=== PATIENT | male | born 1955 | race Caucasian/White ===

== ENCOUNTER 2019-11-02 10:09 | Emergency (ER) | payer OTHER, SELFPAY ==
[2019-11-02 10:18] VITALS: BP 178/73; PULSE 54; RESP 18; TEMP 36.7; O2SAT 98
--- NOTE | 2019-11-02 10:20 | ED.GENADULT ---
HPI - General Adult General Chief complaint: Unspecified Stated complaint: severe sinus pain Time Seen by Provider: 11/02/19 10:18 Source: patient Mode of arrival: ambulatory Limitations: no limitations History of Present Illness HPI narrative: A 64 y/o male presents to the ED with c/o neck pain. Pt states that on 10/30/19 he saw his PCP for congestion and sinus pressure. At that appointment he was prescribed low dose Amoxicillin. He then began to experience neck pain behind his bilateral ears and went to urgent care yesterday. At the urgent care visit they increased his dose of Amoxicillin and advised him to come to the ED if his symptoms did not resolve. He notes that the neck pain is aggravated with movement. Pt denies any fall or injury that could cause the pain. He denies fever, numbness, rash, and otalgia. Pt adds that the Amoxicillin resolved the congestion and sinus pressure. He took Ibuprofen yesterday with no relief. MD complaint: Neck pain Onset (ago): day(s) (1) Location: neck Pain Consistency: constant Relieving factors: none Exacerbating factors: movement Associated symptoms: other (Resolved congestion, resolved sinus pressure) Related Data Home Medications Medication Instructions Recorded Confirmed albuterol sulfate 90 mcg/actuation 1 inhalation INHALATION Q4H 08/15/19 10/15/19 aerosol inhaler levothyroxine 200 mcg tablet 200 mcg PO DAILY 08/15/19 10/15/19 losartan 100 mg tablet 100 mg PO DAILY 08/15/19 10/15/19 niacin 500 mg capsule,extended 500 mg PO QAM 08/15/19 10/15/19 release sildenafil 100 mg tablet 100 mg PO DAILY PRN 08/15/19 10/15/19 simvastatin 20 mg tablet 20 mg PO DAILY 08/15/19 10/15/19 testosterone cypionate 200 mg/mL 200 mg IM MONTHLY 08/15/19 10/15/19 intramuscular oil verapamil 240 mg tablet,extended 240 mg PO DAILY 08/15/19 10/15/19 release Allergies Allergy/AdvReac Type Severity Reaction Status Date / Time hydrochlorothiazide Allergy Unknown Unknown Verified 11/02/19 10:49 valsartan Allergy Unknown Unknown Verified 11/02/19 10:49 2 UNKNOWN B/P MEDICATIONS Allergy Unknown RASH Uncoded 02/05/17 07:27 Review of Systems Review of Systems: Narrative: CONSTITUTIONAL: Denies fever, chills, or sweats. EYES: Denies visual changes, redness, or discharge. ENT: Denies rhinorrhea, sore throat, or otalgia. Resolved congestion and resolved sinus pressure. CARDIOVASCULAR: Denies chest pain, palpitations, or edema. RESPIRATORY: Denies cough or dyspnea. GASTROINTESTINAL: Denies abdominal pain, nausea, vomiting, or diarrhea. GENITOURINARY: Denies dysuria or hematuria. SKIN: Denies rash or itching. MUSCULOSKELETAL: Denies back pain, joint pain, or myalgia. Reports neck pain. NEUROLOGIC: Denies headache, numbness, or weakness. All systems reviewed & are unremarkable except as noted in HPI and below PMFSH Past Medical History Medical History (Updated 11/02/19 @ 10:54 by Betsey Toney MD) Arm fracture, right Benign essential hypertension COPD (chronic obstructive pulmonary disease) Cough Hemochromatosis Hemorrhoid Hyperlipidemia Hypothyroid Pneumonia Polyp, colonic Sleep apnea Ulcer UTI (urinary tract infection) Surgical History Surgical History (Updated 11/02/19 @ 10:30 by Cindy Peck) History of carpal tunnel release Family History Family History Sibling Family history of suicide Patient's brother is in good health Father Family history of lung cancer Other Family history of allergic disorder Family history of malignant neoplasm Hypertension Social History Social History Smoking packs per day: 1.5 Smoking cigarettes per day: 30.0 Years smoked: 15 Smoking pack-years: 22.50 Smoking status: Former smoker Smoking end date: 09/03/89 Alcohol intake: never Exam Narrative: Exam Narrative: GENERAL: Well-appearing, well-nourished, and in no acute distress.
[2019-11-02] MEDS: ACETAMINOPHEN 500 MG TABLET 1000 MG PO (10:50)
[2019-11-02] MEDS: DIAZEPAM 5 MG TABLET PO (10:51)
[2019-11-02] MEDS: KETOROLAC (*BKC) 60 MG/2 ML VIAL 30 MG IM (10:53)
[2019-11-02 11:24] VITALS: TEMP 36.7
== END 2019-11-02 11:26 | disposition home or self-care (01) ==
PROVIDERS: Emergency Provider Emergency Medicine; PCP Physician Assistant
DX: S16.1XXA Strain of muscle, fascia and tendon at neck level, initial encounter (principal); I10 Essential (primary) hypertension; J44.9 Chronic obstructive pulmonary disease, unspecified; E78.5 Hyperlipidemia, unspecified; E03.9 Hypothyroidism, unspecified; G47.30 Sleep apnea, unspecified; Z87.440 Personal history of urinary (tract) infections; F17.210 Nicotine dependence, cigarettes, uncomplicated; X58.XXXA Exposure to other specified factors, initial encounter
CPT/HCPCS: 87804; 96372; 99283; A9270; J1100; J1885

== ENCOUNTER 2020-06-17 12:16 | Outpatient (CLI) | payer OTHER, SELFPAY ==
--- NOTE | ~2020-06-17 | XR_ITS ---
EXAMINATION:XR_[id number]_CR DATE: 06/17/2020 12:49 INDICATION: Neck pain TECHNIQUE: AP, lateral, and odontoid views of the cervical spine are provided. COMPARISON: None FINDINGS: There are 2 mm of anterolisthesis of C4 on C5 and 2 mm of retrolisthesis of C5 on C6. The o dontoid is intact. No fracture is identified. The vertebral body heights are normal. There is severe loss of intervertebral disc space height at C4-5 through C6-7. Prevertebral soft tissues are normal. Degenerative osteophytes project from the anterior endplates of multiple vertebral bodies. There is s evere facet and uncovertebral joint osteoarthritis. IMPRESSION: 1. Severe cervical spondylosis without acute findings. Reviewed, dictated and finalized at location A.
== END 2020-06-17 12:17 | disposition home or self-care (01) ==
LOC: ANHIMG 12:24
PROVIDERS: PCP Physician Assistant; Visit Provider Physician Assistant
DX: M54.2 Cervicalgia (principal); M47.812 Spondylosis without myelopathy or radiculopathy, cervical region
CPT/HCPCS: 72040

== ENCOUNTER → 2021-01-07 00:35 | Outpatient (CLI) | payer OTHER, SELFPAY ==
[2021-01-07 18:42] LABS: SARS-CoV-2 RNA PCR Negative
== END ==
PROVIDERS: PCP Physician Assistant; Visit Provider Internal Medicine Gastroenterology
DX: Z01.812 Encounter for preprocedural laboratory examination (principal); Z20.822 Contact with and (suspected) exposure to COVID-19
CPT/HCPCS: C9803; U0003; U0005

== ENCOUNTER 2021-01-10 01:50 | Day surgery (SDC) | payer OTHER, SELFPAY ==
[2020-12-28 15:48] VITALS: BMI 35.4
--- NOTE | 2021-01-10 08:29 | WPDGICN ---
Assessment and Plan Assessment and plan (1) Encounter for screening colonoscopy: Code(s): Z12.11 - Encounter for screening for malignant neoplasm of colon Status: Acute Assessment and Plan: Patient presents for screening colonoscopy. He appears to have no obvious risk factors. Further recommendations will be given after endoscopy. GI Consult Note Consult date/time: 01/10/21 08:29 HPI: Henry Murphy is a 65 year old male Seen in the evaluation at the request of ROBERT Khan. Patient presents for screening colonoscopy. He states that his current weight appetite bowel movements are normal. Patient's last colonoscopy was 13 years ago. Patient currently denies any abdominal pain. He has had no bleeding. His weight remains stable. He presents today for screening exam. Review of Systems Review of Systems: All systems reviewed & are unremarkable except as noted in HPI and below PMFSH Past Medical History Medical History (Updated 01/10/21 @ 08:31 by Clifton Sanchez MD) Arm fracture, right Benign essential hypertension COPD (chronic obstructive pulmonary disease) Cough Hemochromatosis Hemorrhoid Hyperlipidemia Hypothyroid Pneumonia Polyp, colonic Sleep apnea Ulcer UTI (urinary tract infection) Surgical History Surgical History (Updated 11/02/19 @ 10:30 by Cindy Peck) History of carpal tunnel release Family History Family History Sibling Family history of suicide Patient's brother is in good health Father Family history of lung cancer Other Family history of allergic disorder Family history of malignant neoplasm Hypertension Social History Social History Smoking packs per day: 1.5 Smoking cigarettes per day: 30.0 Years smoked: 22.5 Smoking pack-years: 33.75 Smoking status: Former smoker Tobacco type: cigarettes Smoking end date: 09/03/89 Alcohol intake: current Drinks per week: 3 Substance use: never Substance use type: does not use Living arrangements: with family Gender identity (if verbalized by the patient): Male Spiritual care concerns: No Meds Home Medications and Allergies Home Medications Medication Instructions Recorded Confirmed Type albuterol sulfate 90 mcg/actuation 1 inhalation INHALATION Q4H 08/15/19 12/28/20 History aerosol inhaler levothyroxine 200 mcg tablet 200 mcg PO DAILY 08/15/19 12/28/20 History losartan 100 mg tablet 100 mg PO DAILY 08/15/19 12/28/20 History niacin 500 mg capsule,extended 500 mg PO QAM 08/15/19 12/28/20 History release sildenafil 100 mg tablet 100 mg PO DAILY PRN 08/15/19 12/28/20 History simvastatin 20 mg tablet 20 mg PO DAILY 08/15/19 12/28/20 History testosterone cypionate 200 mg/mL 200 mg IM MONTHLY 08/15/19 12/28/20 History intramuscular oil verapamil 240 mg tablet,extended 240 mg PO DAILY 08/15/19 12/28/20 History release fluticasone furoate 100 1 inhalation INHALATION DAILY #60 09/10/19 12/28/20 Rx mcg-vilanterol 25 mcg/dose each inhalation powder Allergies Allergy/AdvReac Type Severity Reaction Status Date / Time hydrochlorothiazide Allergy Unknown Unknown Verified 01/10/21 08:20 valsartan Allergy Unknown Unknown Verified 01/10/21 08:20 2 UNKNOWN B/P MEDICATIONS Allergy Unknown RASH Uncoded 01/10/21 08:20 Exam Narrative: Exam Narrative: Physical exam reveals patient be alert. Vital signs stable. HEENT exam is unremarkable. Lungs are clear to auscultation and percussion. Heart is without murmur or extra sounds. Abdominal exam bowel sounds are present soft nontender with no organomegaly. Digital external rectal exam is normal.
[2021-01-10] MEDS: LACTATED RINGERS 1,000 ML 150 ML IV CONT (08:39)
--- NOTE | 2021-01-10 09:00 | WPDANESEPPF ---
Anes - Initial Pre Proc Eval Procedure: Operation Date: 01/10/21 09:45 Proposed Procedures p Screening Colonoscopy - Clifton Sanchez MD Date/Time: 01/10/21 09:00 Surgeon: Clifton Sanchez MD Pre Op Diagnosis: neoplasm screening Patient Data Age: 65 Gender: M Height: 5 ft 9 in Weight: 109 kg Allergies Allergy/AdvReac Type Severity Reaction Status Date / Time hydrochlorothiazide Allergy Unknown Unknown Verified 01/10/21 08:20 valsartan Allergy Unknown Unknown Verified 01/10/21 08:20 2 UNKNOWN B/P MEDICATIONS Allergy Unknown RASH Uncoded 01/10/21 08:20 Home Medications Medication Instructions Recorded Confirmed Type albuterol sulfate 90 mcg/actuation 1 inhalation INHALATION Q4H 08/15/19 12/28/20 History aerosol inhaler levothyroxine 200 mcg tablet 200 mcg PO DAILY 08/15/19 12/28/20 History losartan 100 mg tablet 100 mg PO DAILY 08/15/19 12/28/20 History niacin 500 mg capsule,extended 500 mg PO QAM 08/15/19 12/28/20 History release sildenafil 100 mg tablet 100 mg PO DAILY PRN 08/15/19 12/28/20 History simvastatin 20 mg tablet 20 mg PO DAILY 08/15/19 12/28/20 History testosterone cypionate 200 mg/mL 200 mg IM MONTHLY 08/15/19 12/28/20 History intramuscular oil verapamil 240 mg tablet,extended 240 mg PO DAILY 08/15/19 12/28/20 History release fluticasone furoate 100 1 inhalation INHALATION DAILY #60 09/10/19 12/28/20 Rx mcg-vilanterol 25 mcg/dose each inhalation powder Patient hx anesthesia problems: none Family hx anesthesia problems: none PMFSH Past Medical History Medical History (Updated 01/10/21 @ 08:31 by Clifton Sanchez MD) Arm fracture, right Benign essential hypertension COPD (chronic obstructive pulmonary disease) Cough Hemochromatosis Hemorrhoid Hyperlipidemia Hypothyroid Pneumonia Polyp, colonic Sleep apnea Ulcer UTI (urinary tract infection) Surgical History Surgical History (Updated 11/02/19 @ 10:30 by Cindy Peck) History of carpal tunnel release Family History Family History Sibling Family history of suicide Patient's brother is in good health Father Family history of lung cancer Other Family history of allergic disorder Family history of malignant neoplasm Hypertension Social History Social History Smoking packs per day: 1.5 Smoking cigarettes per day: 30.0 Years smoked: 22.5 Smoking pack-years: 33.75 Smoking status: Former smoker Tobacco type: cigarettes Smoking end date: 09/03/89 Alcohol intake: current Drinks per week: 3 Substance use: never Substance use type: does not use Living arrangements: with family Gender identity (if verbalized by the patient): Male Spiritual care concerns: No Anes - Eval Final PreProcedure Day of Procedure 01/10/21 09:00 Patient weight: obese Heart: regular rate and rhythm Lungs: clear to auscultation Airway: Mallampati scale class III Neurological: alert and oriented Last oral intake: >/= 8 hours ASA classification: III Emergent: no Anesthetic plan: proceed Anesthesia type and monitoring: general GIVS and standard monitoring Informed Consent: The patient's anesthetic plan and its attendant risks and benefits were discussed with the patient/family/POA. Questions were solicited and answers provided to the satisfaction of the patient/family/POA.
[2021-01-10 09:24] VITALS: BP 141/73; PULSE 54; RESP 20; O2SAT 96
[2021-01-10 09:30] VITALS: BP 140/70; PULSE 52; RESP 17; O2SAT 96
[2021-01-10 09:40] VITALS: BP 151/75; PULSE 55; RESP 14; O2SAT 98
[2021-01-10 09:46] VITALS: BP 156/77; PULSE 57; RESP 19; O2SAT 98
== END 2021-01-10 10:08 | disposition home or self-care (01) ==
PROVIDERS: PCP Physician Assistant; Visit Provider Internal Medicine Gastroenterology
PROC: 0DJD8ZZ Inspection of Lower Intestinal Tract, Via Natural or Artificial Opening Endoscopic (ICD-10-PCS; CPT 45378; principal; 2021-01-10 09:45)
DX: Z12.11 Encounter for screening for malignant neoplasm of colon (principal); K64.8 Other hemorrhoids; K57.30 Diverticulosis of large intestine without perforation or abscess without bleeding; E03.9 Hypothyroidism, unspecified; Z87.891 Personal history of nicotine dependence; J44.9 Chronic obstructive pulmonary disease, unspecified; G47.30 Sleep apnea, unspecified; E66.9 Obesity, unspecified; Z68.35 Body mass index [BMI] 35.0-35.9, adult; I10 Essential (primary) hypertension
CPT/HCPCS: 45378; C9803; J2704; J7120; U0003; U0005

== ENCOUNTER 2022-10-06 15:26 | Outpatient (CLI) | payer OTHER, SELFPAY ==
--- NOTE | ~2022-10-06 | XR_ITS ---
EXAMINATION: XR chest 2V DATE: 10/06/2022 15:45 INDICATION: Cough and hypertension TECHNIQUE: PA and lateral views of the chest are obtained. COMPARISON: 07/30/2016 FINDINGS: The lungs are free of acute opacities. There is chronic scarring in the right middle lobe. No pleural effusion or pneumothorax. The cardiomediastinal silhouette is normal. There is moderate th oracic spondylosis. IMPRESSION: 1. No acute cardiopulmonary abnormality. Reviewed, dictated and finalized at location B. [facility]
== END 2022-10-06 15:27 | disposition home or self-care (01) ==
PROVIDERS: PCP Physician Assistant; Visit Provider Physician Assistant
DX: R05.9 Cough, unspecified (principal)
CPT/HCPCS: 71046

== ENCOUNTER 2024-03-10 15:00 | Outpatient (CLI) | payer MEDICARE, SELFPAY ==
--- NOTE | ~2024-03-10 | CT_ITS ---
EXAMINATION:CT lung screening DATE: 03/10/2024 15:36 INDICATION: Personal history of nicotine dependence. 25 pack year history. TECHNIQUE: Computed tomography (CT) of the chest was performed without intravenous contrast. Automate d exposure control and iterative reconstruction technique were employed. The dose-length product (DLP ) was 337.35 mGy-cm. COMPARISON: Chest CT 11/26/2017 FINDINGS: There is mild emphysema. There is chronic collapse of right middle lobe. There is mild atel ectasis in the lower lobes. Calcified right lung nodules and calcified right hilar lymph nodes are co nsistent with old granulomatous disease. No pleural effusion. Cardiomegaly is noted. There are monahan ry artery calcifications. No pericardial effusion. The central pulmonary is enlarged, consistent with pulmonary arterial hypertension. There is mild bilateral gynecomastia. There is moderate thoracic sp ondylosis. IMPRESSION: 1. Lung-RADS category 2: Benign appearance or behavior. Continue annual screening with noncontrast lo w-dose chest CT in 12 months. Reviewed, dictated and finalized at location E. IMPRESSION: 1. Lung-RADS category 2: Benign appearance or behavior. Continue annual screeni ng with noncontrast low-dose chest CT in 12 months.
== END 2024-03-10 15:01 | disposition home or self-care (01) ==
PROVIDERS: PCP Physician Assistant; Visit Provider Physician Assistant
DX: Z12.2 Encounter for screening for malignant neoplasm of respiratory organs (principal); Z87.891 Personal history of nicotine dependence
CPT/HCPCS: 71271

== ENCOUNTER 2024-04-28 08:23 | Outpatient (CLI) | payer MEDICARE, SELFPAY ==
--- NOTE | 2024-04-28 | EST_ITS ---
Patient Info Name: Henry Murphy Age: 69 years : 1955 Gender: Male Ht: 68 in Wt: 240 lbs BSA: 2.33 m2 HR: 46 bpm BP: 147 / 73 mmHg Exam Date: 04/28/2024 9:35 AM Exam Location: [facility] Patient Status: Outpatient Admit Date: 04/28/2024 Staff Ordering Physician: ErinAngie PA-C Attending Provider: ErinAngie PA-C Exercise Technologist: Tana Evans RDCS Nurse: Dawn Harmon APN Exam Type: CA stress pablo w NM Summary 1. Sinus rhythm with first-degree AV block and minor T-wave abnormality. 2. No ST or T-wave abnormalities following Lexiscan injection. 3. Occasional PVC. 4. Clinically and electrocardiographically uneventful Lexiscan stress test. 5. Myocardial perfusion imaging exam to be dictated by Radiology. Protocol: Lexiscan Stress ECG Details Stage: REST Duration (min): 1 min : 9 sec HR (bpm): 46 SBP (mmHg): 147 DBP (mmHg): 73 Stage: REST Duration (min): 8 min : 14 sec HR (bpm): 45 SBP (mmHg): 147 DBP (mmHg): 73 Stage: STAGE 1 Duration (min): 0 min : 59 sec HR (bpm): 52 SBP (mmHg): 157 DBP (mmHg): 69 Stage: RECOVERY Duration (min): 1 min : 0 sec HR (bpm): 62 SBP (mmHg): 157 DBP (mmHg): 69 Stage: RECOVERY Duration (min): 2 min : 0 sec HR (bpm): 55 SBP (mmHg): 157 DBP (mmHg): 69 Stage: RECOVERY Duration (min): 3 min : 0 sec HR (bpm): 54 SBP (mmHg): 160 DBP (mmHg): 61 Stage: RECOVERY Duration (min): 4 min : 0 sec HR (bpm): 53 SBP (mmHg): 160 DBP (mmHg): 61 Stage: RECOVERY Duration (min): 5 min : 0 sec HR (bpm): 54 SBP (mmHg): 149 DBP (mmHg): 67 Stage: RECOVERY Duration (min): 5 min : 16 sec HR (bpm): 51 SBP (mmHg): 149 DBP (mmHg): 67 Rest HR: 45 bpm Peak HR: 62 bpm Rest Sys BP: 147 mmHg Peak Sys BP: 160 mmHg Max Pred HR: 150 bpm % Max Pred HR: 41 % Target HR: 128 bpm Max RPP: 9,920 bpm*mmHg Termination Reason: Completed protocol Cardiac Symptoms: None Total Time: 1 min : 0 sec Rest Vargas BP: 73 mmHg Peak Vargas BP: 61 mmHg Total Dose: 0.4 mg Resting ECG Sinus rhythm with first-degree AV block and minor T-wave abnormality. Stress ECG No ST or T-wave abnormalities following Lexiscan injection. Arrhythmias Occasional PVC. Report Signatures
--- NOTE | ~2024-04-28 | NM_ITS ---
EXAMINATION: NM pablo stress w perfusion DATE: 04/28/2024 12:33 CDT INDICATION: Dyspnea with exertion TECHNIQUE: Rest images were obtained following intravenous administration of 11 mCi Tc99m tetrofosmin (Myoview). The patient was infused intravenously with Lexiscan (regadenoson). Then, 34.5 mCi Tc99m t etrofosmin (Myoview) was administered intravenously, and stress images were obtained. Data was recons tructed into short axis and horizontal and vertical long axis SPECT images. Gated SPECT images were a lso obtained. COMPARISON: None. FINDINGS: There is no definite reversible or fixed perfusion abnormality to suggest ischemia or infar ction. There is no segmental wall motion abnormality. Left ventricular ejection fraction measures 7 0%. IMPRESSION: 1. No definite ischemia or infarct. 2. Normal left ventricular ejection fraction measuring 70%. Reviewed, dictated and finalized at location B.
== END 2024-04-28 08:24 | disposition home or self-care (01) ==
PROVIDERS: PCP Physician Assistant; Visit Provider Physician Assistant
DX: R06.09 Other forms of dyspnea (principal)
CPT/HCPCS: 78452; 93017; A9502; J2785

== ENCOUNTER 2025-02-11 09:56 | Outpatient (CLI) | payer MEDICARE, SELFPAY ==
--- NOTE | ~2025-02-11 | XR_ITS ---
Left Hand Technique: PA, oblique, and lateral views were obtained. Clinical History: Pain Findings: No acute fracture or dislocation is seen. Osseous alignment is anatomic. There is mild dege nerative change of the first CMC joint. Soft tissues are unremarkable. Impression: Mild degenerative change of the first CMC joint. Reviewed, dictated and finalized at [facility]. Impression: Mild degenerative change of the first CMC joint.
--- OUTSIDE RECORDS SUMMARY | 2025-02-11 11:13 | XMS_ITS | Clinical Summary ---
Author Organization [facility] Address [address] [place] [address] Care Team Providers Care Curtain Cutter Hand Name Role Phone Virgilio Madrigal MD Primary Care Provider [phone] Source Comments [facility],non-owned Affiliates and Associated Physician Practices is amultiple site organization consisting of ambulatory clinics and hospital sitesin [place], [place], [place] and [place]. This disclosure is being madepursuant to the Care Everywhere program and may not contain all information available regarding this patient. Last updated 18.[facility] Red Stamp Active Problems Problem Noted Date Diagnosed Date Hemochromatosis 10/20/2013 Social History Tobacco Use Types Packs/Day Years Used Date Smoking Tobacco: Never Smokeless Tobacco: Never Alcohol Use Standard Drinks/Week Comments Yes 0 (1 standard drink = 0.6 oz pur e alcohol) Sex and Gender Information Value Date Recorded Sex Assigned at Not on file Legal Sex Male 6:37 PM [employer] Gender Identity Not on file Sexual Orientation Not on file Last Filed Vital Signs Vital Sign Reading Time Taken Comments Blood Pressure 180/85 10/20/2013 2:16 PM [employer] Pulse 59 10/20/2013 2:16 PM [employer] Temperature 36.7 C (98.1 F) 10/20/2013 2:16 PM [employer] Respiratory Rate 18 10/20/2013 2:16 PM [employer] Oxygen Saturation - - Inhaled Oxygen Concentration - - Weight 98.9 kg (218 lb) 10/20/2013 2:16 PM [employer] Height 175.3 cm (5' 9) 10/20/2013 2:16 PM [employer] Body Mass Index 32.19 10/20/2013 2:16 PM [employer] Plan of Treatment Health Maintenance Due Date Last Done Comments COLOGUARD (AGES 45-75) - COL ON CA SCREENING 1955 COLON MONITORING 1955 COLONOSCOPY - COLON CA SCREENING 1955 CT COLONOGRAPHY - COLON CA SCREENING 1955 Colorectal Cancer Screening 1955 FIT - COLON CA SCREENING 1955 FLEX SIG - COLON CA SCREENING 1955 LIPID TESTING 1955 HEPATITIS C SCREENING 01/24/1972 DTAP/TDAP/TD VACCINES (1 - Tdap) 1973 PNEUMOCOCCAL VACCINE 50+ (1 of 1 - PCV) 01/29/2004 ZOSTER VACCINE (1 of 2) 01/29/2004 COVID-19 VACCINE (1 - 2023-2 5 season) 2024 DEPRESSION SCREENING 09/03/2024 INFLUENZA VACCINE (Season Ended) 2025 Respiratory Syncytial Virus (RSV) Vaccine Pt: or over 60 yrs (1 - 1-dose 75+ series) 2029 HEPATITIS B VACCINE Aged Out No longe r eligible based on patient's age to complete this topic HIB VACCINE Aged Out No longer eligi ble based on patient's age to complete this topic HPV VACCINE Aged Out No longer eligi ble based on patient's age to complete this topic MENINGOCOCCAL (Group B) VACC INE SHARED DECISION-MAKING Aged Out No longer eligibl e based on patient's age to complete this topic MENINGOCOCCAL GROUPS A/C/Y/W VACCINE Aged Out No longer eligible b ased on patient's age to complete this topic Care Teams Curtain Cutter Hand Relationship Specialty Start Date End Date Virgilio Madrigal MD [address] [place] [id number] PCP - General 07/07/08
--- OUTSIDE RECORDS SUMMARY | 2025-02-11 11:13 | XMS_ITS | Referral Summary ---
Author Organization [facility] Address [address] [place] [address] Phone Care Team Providers Care Straw Hat Brusher Name Role Phone JasminwillieAngie Primary Care Pr ovider Daxa Nolen PATTERN GENERATOR OPERATOR Unavailable [phone] Encounters Date Type Department Care Team Description 01/14/2025 9:30 AM CDT Lab [facility] at [address] [address] Hemochromatosis, unspecified hemochromatosis type 01/14/2025 10:30 AM CDT Infusion [facility] at [address] [phone] Other hemochromatosis (Primary Dx); Hemochromatosis, unspecified hemochromatosis type 01/14/2025 10:00 AM CDT Office Visit [facility] Hematology [address] [place] [phone] Latrice Nelson NP Hemochromatosis, unspecified hemochromatosis type (Primary Dx) from Last 3 Months Allergies No known active allergies Medications fluticasone (FLONASE) 50 mcg/actuation nasal spray 8 Active levothyroxine (SYNTHROID) 175 mcg tablet 8 Active losartan (COZAAR) 100 mg tablet 8 Active NIASPAN EXTENDED-RELEAS E 500 mg CR tablet 8 Active simvastatin (ZOCOR) 20 mg tablet 8 Active BD LUER-VI SYRINGE 3 mL 22 x 1 1/2 syringe USE WITH TESTOSTERONE INJECTIONS EVERY 2 WEEKS 0 8 Active testosterone cypionate (DEPO-TESTOTERO NE) 200 mg/mL injection 8 Active BREO ELLIPTA 100-25 mcg/dose diskus inhaler 9 Active verapamil ER (VERELAN) 120 mg 24 hr capsule Take 1 capsule (120 mg total) by mouth 2 (two) times a day 9 Active albuterol HFA (PROVENTIL HFA,VENTOLIN HFA,PROAIR HFA) 90 mcg/actuation inhaler INHALE 2 PUFFS EVERY 4-6 HOURS BY INHALATION ROUTE NEEDED. Active fluocinonide (LIDEX) 0.05 % cream APPLY TO AFFECTED AREAS ON EXTREMITIES TWICE DAILY FOR NO MORE THAN 3 WEEKS IN A ROW BEFORE TAKING A ONE WEEK BREAK. REPEAT IF NEEDED Active Active Problems Problem Noted Date Diagnosed Date Other hemochromatosis 01/30/2018 Immunizations Immunization Administration Dates Next Due Influenza, Quadrivalent, Adrienne l Culture-based MDCK, Preservative Free, Antibiotic Free, Intramuscular 06/10/2018 Influenza, Trivalent, High D ose, Split, Preservative Free, Intramuscular 07/28/2019 Influenza, Unspecified 06/21/2021,2019,07/18/2017,07/18,11/10/2014,06/16/2014,07/22/2013 Moderna SARS-CoV-2 Monovalen t Vaccination (12+ YRS) 06/26/2021,11/13/2020,10/16/2020 ZOSTER LIVE 07/18/2017, 7,07/18/2016,03/28,11/24/2015 Social History Tobacco Use Types Packs/Day Years Used Date Smoking Tobacco: Former Cigarettes Q uit: 1990 Smokeless Tobacco: Former Alcohol Use Standard Drinks/Week Comments Yes 0 (1 standard drink = 0.6 oz pur e alcohol) AUDIT-C Answer Date Recorded Frequency of Alcohol Consumption Not on file 01/16/2024 Q2: How many drinks containi ng alcohol do you have on a typical day when you are drinking? 1 or 2 01/16/2024 Q3: How often do you have si x or more drinks on one occasion? Monthly 01/16/2024 Sex and Gender Information Value Date Recorded Sex Assigned at Not on file Legal Sex Male 8:19 AM CDT Gender Identity Not on file Sexual Orientation Not on file Last Filed Vital Signs Vital Sign Reading Time Taken Comments Blood Pressure 168/80 01/14/2025 10:09 AM CDT Pulse 51 01/14/2025 10:09 AM CDT Temperature 36.7 C (98.1 F) 01/14/2025 10:09 AM CDT Respiratory Rate 18 01/14/2025 10:0 9 AM CDT Oxygen Saturation 95% 01/14/2025 10: 09 AM CDT Inhaled Oxygen Concentration - - Weight 117.8 kg (259 lb 9.6 oz) 01/14/2025 10:09 AM CDT with shoes, pt refused Height 170.2 cm (5' 7) 01/14/2025 10:0 9 AM CDT with shoes, pt refused Body Mass Index 40.66 01/14/2025 10:09 AM CDT Plan of Treatment Not on file Procedures Procedure Name Priority Date/Time Associated Diagnosis Comments EGFR Routine 01/14/2025 9:47 AM CDT Hemochromatosis, unspecified hemochromatosis type DIFFERENTIAL AUTO Routine 01/14/2025 9:4 7 AM CDT Hemochromatosis, unspecified hemochromatosis type CBC WITH AUTO DIFFERENTIAL Routine 01/14/2025 9:47 AM CDT Hemochromatosis, unspecified hemochromatosis type COMPREHENSIVE METABOLIC PANEL Routine 01/14/2025 9:47 AM CDT Hemochromatosis, unspecified hemochromatosis type RETICULOCYTES Routine 01/14/2025 9:47 AM CDT Hemochromatosis, unspecified hemochromatosis type FERRITIN Routine 01/14/2025 9:47 AM CDT Hemochromatosis, unspecified hemochromatosis type IRON PROFILE W/ IBC Routine 01/14/2025 9 :47 AM CDT Hemochromatosis, unspecified hemochromatosis type from Last 3 Months Results * eGFR (01/14/2025 9:47 AM CDT) eGFR >90 >=60 mL/min/1. 73 m2 Comment: Interpretive Data Reference Interval Normal >/= 90 mL/min/1.73m2 Mildly decreased* 60 - 89 mL/min/1.73m2 Mildly to moderately decreased 45 - 59 mL/min/1.73m2 Moderately to severely decreased 30 - 44 mL/min/1.73m2 Severely decreased 15 - 29 mL/min/1.73m2 Kidney Failure < 15 mL/min/1.73m2 *Relative to young adult level Estimated glomerular filtration rate is determined by the 2020 CKD-EPI equation recommended by the National Kid[employer] (A Unifying Approach to GFR Estimation: Recommendations of the NKF-ASK Task Force on Reassessing the Inclusion of Race in Diagnosing Kidney Disease, JASN 2020). The CKD-EPI equation should not be used for patients with unstable renal function and has not been validated in children and those over 70. Current interpretive data was last reviewed 2021. Testing performed by: [address] [address] Blood 01/14/2025 9:47 AM CDT 01/14/2025 9:48 AM CDT us Latrice Nelson NP LAB BLOOD ORDERABLES Final Result Performing Organization Address City/State/[facility] Co de Phone Number CHAYO [address] [facility] Department [place] [address] * (ABNORMAL) Differential, auto (01/14/2025 9:47 AM CDT) Pathologist [facility] Neutrophil abs 2.57 1.50 - 6.50 K/cumm Comment:Testing performed by : [address] [address] Imm gran abs 0.01 0.00 - 0.10 K/cumm CHAYO SAHA Comment:Testing performed by : [address] [address] Lymphocyte abs 1.09 0.80 - 3.30 K/cumm [facility] Comment:Testing performed by : [address], [place]., [address] Monocyte abs 0.86(H) 0.20 - 0.80 K/cumm [facility] Comment:Testing performed by : [address], [place]., [address] Eosinophil abs 0.09 0.00 - 0.50 K/cumm [facility] Comment:Testing performed by : [address], [place]., [address] Basophil abs 0.04 0.00 - 0.10 K/cumm [facility] Comment:Testing performed by : [address] [address] Neutrophil pct 55.1 % [facility] Comment: Interpretive Data Percent cell count reference ranges are not reported, since discordance with absolute values may lead to misinterpretation of CBC data. Current Interpretive Data was last revised on 2017. Testing performed by: [address] [address] Imm gran pct 0.2 % [facility] Comment: Interpretive Data Percent cell count reference ranges are not reported, since discordance with absolute values may lead to misinterpretation of CBC data. Current Interpretive Data was last revised on 2017. Testing performed by: [address] [address] Lymphocyte pct 23.4 % [facility] Comment: Interpretive Data Percent cell count reference ranges are not reported, since discordance with absolute values may lead to misinterpretation of CBC data. Current Interpretive Data was last revised on 2017. Testing performed by: [address] [address] Monocyte pct 18.5 % [facility] Comment: Interpretive Data Percent cell count reference ranges are not reported, since discordance with absolute values may lead to misinterpretation of CBC data. Current Interpretive Data was last revised on 2017. Testing performed by: [address] [address] Eosinophil pct 1.9 % [facility] Comment: Interpretive Data Percent cell count reference ranges are not reported, since discordance with absolute values may lead to misinterpretation of CBC data. Current Interpretive Data was last revised on 2017. Testing performed by: [address] [address] Basophil pct 0.9 % CHAYO SAHA Comment: Interpretive Data Percent cell count reference ranges are not reported, since discordance with absolute values may lead to misinterpretation of CBC data. Current Interpretive Data was last revised on 2017. Testing performed by: [address] [address] Blood 01/14/2025 9:47 AM CDT 01/14/2025 9:48 AM CDT Latrice Nelson LAB BLOOD ORDERABLES Final Result Performing Organization Address [place]/[facility] Co de Phone Number [address] [employer] [place] [address] * Iron profile w/ IBC (01/14/2025 9:47 AM CDT) Pathologist [facility] Iron 120 50 - 150 mcg/dL Comment:Testing performed by : [address] [address] TIBC 261 250 - 400 mcg/dL CHAYO Comment:Testing performed by : [address] [address] Transferrin saturation 46 20 - 50 % CHAYO Comment:Testing performed by : [address] [address] Blood 01/14/2025 9:47 AM CDT 01/14/2025 11:39 AM CDT Latrice Nelson PATTERN GENERATOR OPERATOR LAB BLOOD ORDERABLES Final Result Performing Organization Address City/[facility] Co de Phone Number [address] [employer] [place] [address] * (ABNORMAL) CBC with auto differential (01/14/2025 9:47 AM CDT) WBC 4.66 3.80 - 9.90 K/cumm Comment:Testing performed by : [address], [address] Hgb 17.8(H) 13.0 - 17.5 g/dL CHAYO Comment:Testing performed by : [address] [address] Hct 50.1 38.9 - 50.3 % CHAYO Comment:Testing performed by : [address], [address] Plt 144(L) 150 - 400 K/cumm CHAYO Comment:Testing performed by : [address], [address] MPV 10.2 9.1 - 12.3 fL CHAYO Comment:Testing performed by : [address], [address] RBC 5.29 4.30 - 5.80 M/cumm CHAYO Comment:Testing performed by : [address], [address] MCV 94.7 81.3 - 96.4 fL CHAYO Comment:Testing performed by : [address], [address] MCH 33.6(H) 27.1 - 33.3 pg CHAYO Comment:Testing performed by : [address] [address] MCHC 35.5 32.3 - 35.7 g/dL CHAYO Comment:Testing performed by : [address], [address] RDW CV 15.1(H) 11.1 - 14.9 % CHAYO Comment:Testing performed by : [address], [address] RDW SD 52.3(H) 35.7 - 48.1 fL CH[facility]O Comment:Testing performed by : [address], [address] NRBC abs 0.00 0.00 - 0.01 K/cumm CHAYO Comment:Testing performed by : [address] [address] ANC Prelim 2.57 1.50 - 6.50 K/cumm CHAYO SAHA Comment: Interpretive Data The rapid ANC is a preliminary automated count and may vary from the final ANC (Neut Abs) reported in the WBC differential that follows. Current interpretive data was last revised 2024. Testing performed by: [address] [address] Blood 01/14/2025 9:47 AM CDT 01/14/2025 9:48 AM CDT Latrice Nelson PATTERN GENERATOR OPERATOR LAB BLOOD ORDERABLES Final Result [facility] [place] [address] * (ABNORMAL) Reticulocyte Count (01/14/2025 9:47 AM CDT) [facility] Retics, absolute 77 20 - 87 K/cumm Comment:Testing performed by : [address] [address] Retics 1.5 0.4 - 2.9 % CHAYO Comment:Testing performed by : [address] [address] Reticulocyte Hgb 40.1(H) 30.5 - 38.0 pg CHAYO SAHA Comment:Testing performed by : [address] [address] Blood 01/14/2025 9:47 AM CDT 01/14/2025 9:48 AM CDT Latrice Nelson NP LAB BLOOD ORDERABLES Final Result [facility] [place] [address] * Ferritin (01/14/2025 9:47 AM CDT) [facility] Ferritin 146 30 - 400 ng/mL Comment:Testing performed by : [address] [address] Blood 01/14/2025 9:47 AM CDT 01/14/2025 11:39 AM CDT Latrice Nelson NP LAB BLOOD ORDERABLES Final Result [facility] [address] [facility] Department [place] [address] * (ABNORMAL) Comprehensive metabolic panel (01/14/2025 9:47 AM CDT) Sodium 132(L) 135 - 145 mmol/L Comment:Testing performed by : [address] [address] Potassium, pl 4.4 3.3 - 4.9 mmol/L CHAYO Comment:Testing performed by : [address] [address] Chloride 100 97 - 110 mmol/L CHAYO Comment:Testing performed by : [address] [address] CO2 23 22 - 32 mmol/L CH[facility]O Comment:Testing performed by : [address] [address] Anion gap 9 2 - 15 mmol/L CHAYO Comment:Testing performed by : [address] [address] BUN 8 6 - 25 mg/dL CHAYO Comment:Testing performed by : [address] [address] Creatinine 0.60(L) 0.80 - 1.30 mg/dL CH[facility]O Comment:Testing performed by : [address] [address] Glucose 95 70 - 199 mg/dL CHAYO Comment: Interpretive Data Fasting glucose >/= 126 mg/dl is diagnostic for diabetes. Fasting is defined as no caloric intake for at least 8 hours. Fasting glucose between 100 mg/dl to 125 mg/dl is diagnostic of prediabetes. In a patient with classic symptoms of hyperglycemia or hyperglycemic crisis, a random glucose >/= 200 mg/dl is diagnostic for diabetes. In the absence of unequivocal hyperglycemia, results should be confirmed by repeat testing. The classification and Diagnosis of Diabetes Diabetes Care 202; 46: S19-S40. Current interpretive data was last revised 2022. Testing performed by: [facility], [address] [place] [address]., [address] Calcium 9.3 8.5 - 10.3 mg/dL CHAYO Comment:Testing performed by : [address] [address] Bilirubin, total 0.4 0.1 - 1.2 mg/dL CHAYO Comment:Testing performed by : [address] [address] Protein, pl 7.6 6.5 - 8.5 g/dL CH[facility]O Comment:Testing performed by : [address] [address] Albumin 3.9 3.5 - 5.0 g/dL CH[facility]O Comment:Testing performed by : [address] [address] Alk phos 130 40 - 130 Units/L CH[facility]O Comment:Testing performed by : [address] [address] ALT 38 7 - 55 Units/L CH[facility]O Comment:Testing performed by : [address] [address] AST 40 10 - 50 Units/L CH[facility]O Comment:Testing performed by : [address] [address] Blood 01/14/2025 9:47 AM CDT 01/14/2025 9:48 AM CDT Narrative [facility] - 01/14/2025 10:13 AM CDT Has the patient fasted?->No Latrice Nelson NP LAB BLOOD ORDERABLES Final Result [facility] [address] [facility] Department [place] [address] from Last 3 Months Insurance MEDICARE ADVANTAGE MEDICARE ADVANTAGE Care Teams Straw Hat Brusher Relationship Specialty Start Date End Date Angie Khan PA PCP - General Physician Hydrodynamics Teacher 01/28/19 Daxa Nolen, PATTERN GENERATOR OPERATOR [address] [place] [phone] Nurse Practitioner Medical Oncology 01/12/23
--- OUTSIDE RECORDS SUMMARY | 2025-02-11 11:13 | XMS_ITS | Clinical Summary ---
Author Organization [facility] Address [address] [place] [address] Phone Care Team Providers Care Machine Tool Designer Name Role Phone Erin Angie JONES Primary Care Pr ovider Daxa Nolen ESTIMATOR PAPERBOARD BOXES Unavailable [phone] Allergies No known active allergies Medications fluticasone [...] Noted Date Diagnosed Date Other hemochromatosis 01/30/2018 Encounters Date Type Department Care Team Description 01/14/2025 10:30 AM CDT [facility] at [address] [phone] Other hemochromatosis (Primary Dx); Hemochromatosis, unspecified hemochromatosis type 01/14/2025 10:00 AM CDT Office Visit [facility] Hematology [address] [place] [address] [address] [place] [address] Latrice Nelson NP Hemochromatosis, unspecified hemochromatosis type (Primary Dx) 01/14/2025 9:30 AM CDT Lab [address] [address] Hemochromatosis, unspecified hemochromatosis type from Last 3 Months Immunizations Immunization Administration Dates Next Due Influenza, Quadrivalent, Adrienne l Culture-based MDCK, Preservative Free, Antibiotic Free, Intramuscular 06/10/2018 Influenza, Trivalent, High D ose, Split, Preservative Free, Intramuscular 07/28/2019 Influenza, Unspecified 06/21/2021,2019,07/18/2017,07/18,11/10/2014,06/16/2014,07/22/2013 Moderna SARS-CoV-2 Monovalen t Vaccination (12+ YRS) 06/26/2021,11/13/2020,10/16/2020 ZOSTER LIVE 07/18/2017, 7,07/18/2016,03/28,11/24/2015 Surgical History Surgery Date Site/Laterality Comments COLONOSCOPY Medical History Medical History Date Comments Hemochromatosis Family History Medical History Relation Name Comments Lung cancer Father Heart disease Mother Relation Name Status Comments Father Mother Social History Tobacco Use Types Packs/Day Years Used Date Smoking Tobacco: Former Cigarettes Q uit: 1991 Smokeless Tobacco: Former Alcohol Use Standard Drinks/Week [...] on file Sexual Orientation Not on file Obstetrics History Last Filed Vital Signs Vital Sign Reading [...] 01/14/2025 10:09 AM CDT Plan of Treatment Health Maintenance Due Date Last Done Comments Colon Cancer Screening-Colonoscopy 1954 Depression Screening 1954 Fall Risk Assessment 1955 Hepatitis C Screening 1954 DTaP/Tdap/Td Vaccine (1 - Tdap) 1965 Hepatitis B Screening 01/29/1972 Pneumococcal vaccine 65+ (1 of 2 - PCV) 1973 Zoster Vaccine (2 of 3) 09/12/2017 07/18/20 17, 01/17/2017, 07/18/2016, Additional history exists Abdominal Aortic Aneurysm (A AA) Screen 2019 Well Visit 65+ 2019 Covid-19 Vaccine (5 - 2023-2 5 season) 2024 07/21/2022, 06/26/2021, 11/13/2020, Additional history exists Influenza Vaccine (Season Ended) 2025 06/21/2021, 05/31/2020, 07/28/2019, Additional history exists Procedures Procedure Name Priority Date/Time Associated Diagnosis [...] was last reviewed 2021. Testing performed by: [address] [address] Blood 01/14/2025 9:47 AM CDT 01/14/2025 9:48 AM CDT Latrice Nelson ESTIMATOR PAPERBOARD BOXES LAB BLOOD ORDERABLES Final Result [facility] [address] [facility] Department [place] [address] * (ABNORMAL) Differential, auto (01/14/2025 9:47 AM CDT) Neutrophil abs 2.57 1.50 - 6.50 K/cumm Comment:Testing performed by : [address] [address] Imm gran abs 0.01 0.00 - 0.10 K/cumm [facility] Comment:Testing performed by : [address] [address] Lymphocyte abs 1.09 0.80 - 3.30 K/cumm [facility] Comment:Testing performed by : [address] [address] Monocyte abs 0.86(H) 0.20 - 0.80 K/cumm [facility] Comment:Testing performed by : [address] [address] Eosinophil abs 0.09 0.00 - 0.50 K/cumm [facility] Comment:Testing performed by : [address] [address] Basophil abs 0.04 0.00 - 0.10 K/cumm [facility] Comment:Testing performed by : [address] [address] Neutrophil pct 55.1 % [facility] Comment: Interpretive Data Percent cell count reference ranges are not reported, since discordance with absolute values may lead to misinterpretation of CBC data. Current Interpretive Data was last revised on 2017. Testing performed by: [address] [address] Imm gran pct 0.2 % [facility] Comment: Interpretive Data Percent cell count reference ranges are not reported, since discordance with absolute values may lead to misinterpretation of CBC data. Current Interpretive Data was last revised on 2017. Testing performed by: [address] [address] Lymphocyte pct 23.4 % [facility] Comment: Interpretive Data Percent cell count reference ranges are not reported, since discordance with absolute values may lead to misinterpretation of CBC data. Current Interpretive Data was last revised on 2017. Testing performed by: [address] [address] Monocyte pct 18.5 % [facility] Comment: Interpretive Data Percent cell count reference ranges are not reported, since discordance with absolute values may lead to misinterpretation of CBC data. Current Interpretive Data was last revised on 2017. Testing performed by: [address] [address] Eosinophil pct 1.9 % [facility] Comment: Interpretive Data Percent cell count reference ranges are not reported, since discordance with absolute values may lead to misinterpretation of CBC data. Current Interpretive Data was last revised on 2017. Testing performed by: [address] [address] Basophil pct 0.9 % [facility] Comment: Interpretive Data Percent cell count reference ranges are not reported, since discordance with absolute values may lead to misinterpretation of CBC data. Current Interpretive Data was last revised on 2017. Testing performed by: [address] [address] Blood 01/14/2025 9:47 AM CDT 01/14/2025 9:48 AM CDT us Latrice Nelson NP LAB BLOOD ORDERABLES Final Result [facility] [address] [facility] Department [place] [address] * Iron profile w/ IBC (01/14/2025 9:47 AM CDT) Iron 120 50 - 150 mcg/dL Comment:Testing performed by : [address] [address] TIBC 261 250 - 400 mcg/dL [facility] Comment:Testing performed by : [address] [address] Transferrin saturation 46 20 - 50 % [facility] Comment:Testing performed by : [address] [address] Blood 01/14/2025 9:47 AM CDT 01/14/2025 11:39 AM CDT Latrice Nelson ESTIMATOR PAPERBOARD BOXES LAB BLOOD ORDERABLES Final Result Performing Organization Address City/State/[facility] Co de Phone Number [facility] [facility] Department [place] [address] * (ABNORMAL) CBC with auto differential (01/14/2025 9:47 AM CDT) Pathologist [facility] WBC 4.66 3.80 - 9.90 K/cumm Comment:Testing performed by : [address] [address] Hgb 17.8(H) 13.0 - 17.5 g/dL [facility] Comment:Testing performed by : [address] [address] Hct 50.1 38.9 - 50.3 % [facility] Comment:Testing performed by : [address] [address] Plt 144(L) 150 - 400 K/cumm [facility] Comment:Testing performed by : [address] [address] MPV 10.2 9.1 - 12.3 fL [facility] Comment:Testing performed by : [address] [address] RBC 5.29 4.30 - 5.80 M/cumm [facility] Comment:Testing performed by : [address] [place]., [address] MCV 94.7 81.3 - 96.4 fL [facility] Comment:Testing performed by : [address] [address] MCH 33.6(H) 27.1 - 33.3 pg [facility] Comment:Testing performed by : [address] [address] MCHC 35.5 32.3 - 35.7 g/dL [facility] Comment:Testing performed by : [address] [address] RDW CV 15.1(H) 11.1 - 14.9 % [facility] Comment:Testing performed by : [address] [address] RDW SD 52.3(H) 35.7 - 48.1 fL [facility] Comment:Testing performed by : [address] [address] NRBC abs 0.00 0.00 - 0.01 K/cumm [facility] Comment:Testing performed by : [address] [address] ANC Prelim 2.57 1.50 - 6.50 K/cumm [facility] Comment: Interpretive Data The rapid ANC is a preliminary automated count and may vary from the final ANC (Neut Abs) reported in the WBC differential that follows. Current interpretive data was last revised 2024. Testing performed by: [address] [address] Blood 01/14/2025 9:47 AM CDT 01/14/2025 9:48 AM CDT us Latrice Nelson NP LAB BLOOD ORDERABLES Final Result [facility] [address] [facility] Department [place] [address] * (ABNORMAL) Reticulocyte Count (01/14/2025 9:47 AM CDT) [facility] Signature Retics, absolute 77 20 - 87 K/cumm Comment:Testing performed by : [address] [address] Retics 1.5 0.4 - 2.9 % [facility] Comment:Testing performed by : [address] [address] Reticulocyte Hgb 40.1(H) 30.5 - 38.0 pg [facility] Comment:Testing performed by : [address] [address] Blood 01/14/2025 9:47 AM CDT 01/14/2025 9:48 AM CDT Latrice Nelson ESTIMATOR PAPERBOARD BOXES LAB BLOOD ORDERABLES Final Result Performing Organization Address [facility] Co de Phone Number [address] [place] [employer] [address] * Ferritin (01/14/2025 9:47 AM CDT) Pathologist [facility] Ferritin 146 30 - 400 ng/mL Comment:Testing performed by : [address] [address] Blood 01/14/2025 9:47 AM CDT 01/14/2025 11:39 AM CDT Latrice Nelson ESTIMATOR PAPERBOARD BOXES LAB BLOOD ORDERABLES Final Result Performing Organization Address City/[facility] Co de Phone Number [address] [address] * (ABNORMAL) Comprehensive metabolic panel (01/14/2025 9:47 AM CDT) [facility] Sodium 132(L) 135 - 145 mmol/L Comment:Testing performed by : [address] [address] Potassium, pl 4.4 3.3 - 4.9 mmol/L [facility] Comment:Testing performed by : [address] [address] Chloride 100 97 - 110 mmol/L [facility] Comment:Testing performed by : [facility], [address] [place] [address]., [address] CO2 23 22 - 32 mmol/L [facility] Comment:Testing performed by : [address] [address] Anion gap 9 2 - 15 mmol/L [facility] Comment:Testing performed by : [address] [address] BUN 8 6 - 25 mg/dL [facility] Comment:Testing performed by : [address], [place]., [address] Creatinine 0.60(L) 0.80 - 1.30 mg/dL [facility] Comment:Testing performed by : [address] [address] Glucose 95 70 - 199 mg/dL [facility] [...] was last revised 2022. Testing performed by: [address] [address] Calcium 9.3 8.5 - 10.3 mg/dL [facility] Comment:Testing performed by : [address] [address] Bilirubin, total 0.4 0.1 - 1.2 mg/dL [facility] Comment:Testing performed by : [address] [address] Protein, pl 7.6 6.5 - 8.5 g/dL [facility] Comment:Testing performed by : [address] [address] Albumin 3.9 3.5 - 5.0 g/dL [facility] Comment:Testing performed by : [address] [place]., [address] Alk phos 130 40 - 130 Units/L [facility] Comment:Testing performed by : [address] [address] ALT 38 7 - 55 Units/L [facility] SAHA Comment:Testing performed by : [address] [address] AST 40 10 - 50 Units/L [facility] Comment:Testing performed by : [address] [address] Blood 01/14/2025 9:47 AM CDT 01/14/2025 9:48 AM CDT Narrative [facility] - 01/14/2025 10:13 AM CDT Has the patient fasted?->No us Latrice Nelson ESTIMATOR PAPERBOARD BOXES LAB BLOOD ORDERABLES Final Result Performing Organization Address City/State/[facility] Co de Phone Number [facility] [address] [facility] Department [place] [address] from Last 3 Months Insurance [facility] MED[employer]VANTAGE [facility] MED[employer]VANTAGE Care Teams Machine Tool Designer Relationship Specialty Start Date End Date Angie Khan PA PCP - General Physician Tip Bander 01/28/19 Daxa Nolen, SIDRA [address] [place] [id number] Nurse Practitioner Medical Oncology 01/12/23
== END 2025-02-11 09:57 | disposition home or self-care (01) ==
PROVIDERS: PCP Physician Assistant; Visit Provider Plastic Surgery
DX: M18.12 Unilateral primary osteoarthritis of first carpometacarpal joint, left hand (principal)
CPT/HCPCS: 73130

== ENCOUNTER 2025-03-17 13:18 | Outpatient (CLI) | payer MEDICARE, SELFPAY ==
--- NOTE | ~2025-03-17 | CT_ITS ---
CT Scan of the Chest without Contrast: Clinical Indication: Lung cancer screening, nicotine dependence Technique: Contiguous sections were acquired throughout the chest without intravenous contrast. Dose reduction technique was used on this scan by utilizing automated exposure control and iterative recon struction technique. The dose-length product (DLP) was 301.33 mGy-cm. COMPARISON: 03/10/2024 Findings: There is no evidence of any significant mediastinal, hilar or axillary lymphadenopathy. The mediastin al soft tissues appear normal. There is no evidence of pleural or pericardial effusion. Stable chronic right middle lobe atelectasis/collapse. No pulmonary nodule evident. Images through the upper abdomen reveal no abnormalities. Impression: Lung RADS 2: Benign appearance. 12 month follow-up screening CT advised. Reviewed, dictated and finalized at location . Impression: Lung RADS 2: Benign appearance. 12 month follow-up screening CT advised.
--- OUTSIDE RECORDS SUMMARY | 2025-03-17 13:24 | XMS_ITS | Clinical Summary ---
Author Organization [facility] Address [address] [place] [address] Phone Care Team Providers Care Locomotive Crane Operator Name Role Phone Erin Angie JONES Primary Care Pr ovider Daxa Nolen ASSOCIATE PROFESSOR OF HISTORY Unavailable [phone] Allergies No known active allergies Medications [...] Team Description 01/14/2025 10:30 AM CDT Infusion [facility] at [address] [phone] Other hemochromatosis (Primary Dx); Hemochromatosis, unspecified hemochromatosis type 01/14/2025 10:00 AM CDT Office Visit [facility] Hematology [address] [place] [address] [address] [place] [address] Latrice Nelson NP Hemochromatosis, unspecified hemochromatosis type (Primary Dx) 01/14/2025 9:30 AM CDT Lab [address] [address] Hemochromatosis, unspecified hemochromatosis type from Last 3 [...] 06/26/2021, 11/13/2020, Additional history exists Influenza Vaccine (#1) 2025 , 05/31/2020, 07/28/2019, Additional history exists Procedures Procedure [...] was last reviewed 2021. Testing performed by: [address] [address] Blood 01/14/2025 9:47 AM CDT 01/14/2025 9:48 AM CDT Latrice Nelson ASSOCIATE PROFESSOR OF HISTORY LAB BLOOD ORDERABLES Final Result [facility] [address] [facility] Department [place] [address] * (ABNORMAL) Differential, auto (01/14/2025 9:47 AM CDT) Neutrophil abs 2.57 1.50 - 6.50 K/cumm Comment:Testing performed by : [address] [address] Imm gran abs 0.01 0.00 - 0.10 K/cumm [facility] Comment:Testing performed by : [address] [address] Lymphocyte abs 1.09 0.80 - 3.30 K/cumm [facility] Comment:Testing performed by : [address] [address] Monocyte abs 0.86(H) 0.20 - 0.80 K/cumm [facility] Comment:Testing performed by : [address] [address] Eosinophil abs 0.09 0.00 - 0.50 K/cumm [facility] Comment:Testing performed by : [address] [address] Basophil abs 0.04 0.00 - 0.10 K/cumm [facility] Comment:Testing performed by : [address] [address] Neutrophil pct 55.1 % [facility] Comment: Interpretive Data Percent cell count reference ranges are not reported, since discordance with absolute values may lead to misinterpretation of CBC data. Current Interpretive Data was last revised on 2017. Testing performed by: [address] [address] Imm gran pct 0.2 % [facility] Comment: Interpretive Data Percent cell count reference ranges are not reported, since discordance with absolute values may lead to misinterpretation of CBC data. Current Interpretive Data was last revised on 2017. Testing performed by: [address] [address] Lymphocyte pct 23.4 % [facility] Comment: Interpretive Data Percent cell count reference ranges are not reported, since discordance with absolute values may lead to misinterpretation of CBC data. Current Interpretive Data was last revised on 2017. Testing performed by: [address] [address] Monocyte pct 18.5 % [facility] Comment: Interpretive Data Percent cell count reference ranges are not reported, since discordance with absolute values may lead to misinterpretation of CBC data. Current Interpretive Data was last revised on 2017. Testing performed by: [address] [address] Eosinophil pct 1.9 % [facility] Comment: Interpretive Data Percent cell count reference ranges are not reported, since discordance with absolute values may lead to misinterpretation of CBC data. Current Interpretive Data was last revised on 2017. Testing performed by: [address] [address] Basophil pct 0.9 % [facility] Comment: Interpretive Data Percent cell count reference ranges are not reported, since discordance with absolute values may lead to misinterpretation of CBC data. Current Interpretive Data was last revised on 2017. Testing performed by: [address] [address] Blood 01/14/2025 9:47 AM CDT 01/14/2025 9:48 AM CDT us Latrice Nelson NP LAB BLOOD ORDERABLES Final Result [facility] [address] [facility] Department [place] [address] * Iron profile w/ IBC (01/14/2025 9:47 AM CDT) Iron 120 50 - 150 mcg/dL Comment:Testing performed by : [address] [address] TIBC 261 250 - 400 mcg/dL [facility] SAHA Comment:Testing performed by : [address] [address] Transferrin saturation 46 20 - 50 % [facility] SAHA Comment:Testing performed by : [address] [address] Blood 01/14/2025 9:47 AM CDT 01/14/2025 11:39 AM CDT Latrice Nelson ASSOCIATE PROFESSOR OF HISTORY LAB BLOOD ORDERABLES Final Result Performing Organization Address City/State/[facility] Co de Phone Number [facility] Department [place] [address] * (ABNORMAL) CBC with auto differential (01/14/2025 9:47 AM CDT) Pathologist [facility] WBC 4.66 3.80 - 9.90 K/cumm Comment:Testing performed by : [address] [address] Hgb 17.8(H) 13.0 - 17.5 g/dL [facility] SAHA Comment:Testing performed by : [address] [address] Hct 50.1 38.9 - 50.3 % [facility] SAHA Comment:Testing performed by : [address] [address] Plt 144(L) 150 - 400 K/cumm [facility] SAHA Comment:Testing performed by : [address] [address] MPV 10.2 9.1 - 12.3 fL [facility] SAHA Comment:Testing performed by : [address] [address] RBC 5.29 4.30 - 5.80 M/cumm [facility] SAHA Comment:Testing performed by : [address] [place]., [address] MCV 94.7 81.3 - 96.4 fL [facility] Comment:Testing performed by : [address] [address] MCH 33.6(H) 27.1 - 33.3 pg [facility] SAHA Comment:Testing performed by : [address] [address] MCHC 35.5 32.3 - 35.7 g/dL [facility] Comment:Testing performed by : [address] [address] RDW CV 15.1(H) 11.1 - 14.9 % [facility] Comment:Testing performed by : [address] [address] RDW SD 52.3(H) 35.7 - 48.1 fL [facility] Comment:Testing performed by : [address] [address] NRBC abs 0.00 0.00 - 0.01 K/cumm [facility] Comment:Testing performed by : [address] [address] ANC Prelim 2.57 1.50 - 6.50 K/cumm [facility] Comment: Interpretive Data The rapid ANC is a preliminary automated count and may vary from the final ANC (Neut Abs) reported in the WBC differential that follows. Current interpretive data was last revised 2024. Testing performed by: [address] [address] Blood 01/14/2025 9:47 AM CDT 01/14/2025 9:48 AM CDT us Latrice Nelson NP LAB BLOOD ORDERABLES Final Result [facility] [address] [facility] Department [place] [address] * (ABNORMAL) Reticulocyte Count (01/14/2025 9:47 AM CDT) [facility] Signature Retics, absolute 77 20 - 87 K/cumm Comment:Testing performed by : [address] [address] Retics 1.5 0.4 - 2.9 % [facility] Comment:Testing performed by : [address] [address] Reticulocyte Hgb 40.1(H) 30.5 - 38.0 pg [facility] SAHA Comment:Testing performed by : [address] [address] Blood 01/14/2025 9:47 AM CDT 01/14/2025 9:48 AM CDT Latrice Nelson ASSOCIATE PROFESSOR OF HISTORY LAB BLOOD ORDERABLES Final Result Performing Organization Address [facility] Co de Phone Number [address] [place] [address] * Ferritin (01/14/2025 9:47 AM CDT) Pathologist [facility] Ferritin 146 30 - 400 ng/mL Comment:Testing performed by : [address] [address] Blood 01/14/2025 9:47 AM CDT 01/14/2025 11:39 AM CDT Latrice Nelson ASSOCIATE PROFESSOR OF HISTORY LAB BLOOD ORDERABLES Final Result Performing Organization Address City/[facility] Co de Phone Number [address] [address] * (ABNORMAL) Comprehensive metabolic panel (01/14/2025 9:47 AM CDT) [facility] Sodium 132(L) 135 - 145 mmol/L Comment:Testing performed by : [address] [address] Potassium, pl 4.4 3.3 - 4.9 mmol/L [facility] Comment:Testing performed by : [address] [address] Chloride 100 97 - 110 mmol/L [facility] Comment:Testing performed by : [facility], [address] [place] [address]., [address] CO2 23 22 - 32 mmol/L [facility] Comment:Testing performed by : [address] [address] Anion gap 9 2 - 15 mmol/L [facility] Comment:Testing performed by : [address] [address] BUN 8 6 - 25 mg/dL [facility] Comment:Testing performed by : [address], [place]., [address] Creatinine 0.60(L) 0.80 - 1.30 mg/dL [facility] Comment:Testing performed by : [address] [address] Glucose 95 70 - 199 mg/dL CH[facility]O [...] was last revised 2022. Testing performed by: [address] [address] Calcium 9.3 8.5 - 10.3 mg/dL [facility] Comment:Testing performed by : [address] [address] Bilirubin, total 0.4 0.1 - 1.2 mg/dL [facility] Comment:Testing performed by : [address] [address] Protein, pl 7.6 6.5 - 8.5 g/dL [facility] Comment:Testing performed by : [address] [address] Albumin 3.9 3.5 - 5.0 g/dL [facility] Comment:Testing performed by : [address] [place]., [address] Alk phos 130 40 - 130 Units/L [facility] Comment:Testing performed by : [address] [address] ALT 38 7 - 55 Units/L [facility] SAHA Comment:Testing performed by : [address] [address] AST 40 10 - 50 Units/L [facility] Comment:Testing performed by : [address] [address] Blood 01/14/2025 9:47 AM CDT 01/14/2025 9:48 AM CDT Narrative [facility] - 01/14/2025 10:13 AM CDT Has the patient fasted?->No us Latrice Nelson ASSOCIATE PROFESSOR OF HISTORY LAB BLOOD ORDERABLES Final Result Performing Organization Address City/State/[facility] Co de Phone Number [facility] [address] [facility] Department [place] [address] from Last 3 Months Insurance [facility] [place] [address] [facility] [place] [address] Care Teams Locomotive Crane Operator Relationship Specialty Start Date End Date Angie Khan PA PCP - General Physician Supervisor Sheet Manufacturing 01/28/19 Daxa Nolen, SIDRA [address] [place] [id number] Nurse Practitioner Medical Oncology 01/12/23
--- OUTSIDE RECORDS SUMMARY | 2025-03-17 13:24 | XMS_ITS | Referral Summary ---
Author Organization [facility] Address [address] [place] [address] Phone Care Team Providers Care Animal Behaviorist Name Role Phone JasminwillieAngie Primary Care Pr ovider Daxa Nolen SERVICE STATION CONSOLE OPERATOR Unavailable [phone] Encounters Date Type Department Care Team Description 01/14/2025 9:30 AM CDT Lab [facility] at [address] [address] Hemochromatosis, unspecified hemochromatosis type 01/14/2025 10:30 AM CDT Infusion [facility] at [address] [phone] Other hemochromatosis (Primary Dx); Hemochromatosis, unspecified hemochromatosis type 01/14/2025 10:00 AM CDT Office Visit [facility] Hematology [address] [place] [phone] Latrice Nelson NP Hemochromatosis, unspecified hemochromatosis type [...] was last reviewed 2021. Testing performed by: [address] [address] Blood 01/14/2025 9:47 AM CDT 01/14/2025 9:48 AM CDT us Latrice Nelson NP LAB BLOOD ORDERABLES Final Result Performing Organization Address City/State/[facility] Co de Phone Number [facility] [address] [facility] [place] [address] * (ABNORMAL) Differential, auto (01/14/2025 9:47 AM CDT) Pathologist [facility] Neutrophil abs 2.57 1.50 - 6.50 K/cumm Comment:Testing performed by : [address] [address] Imm gran abs 0.01 0.00 - 0.10 K/cumm CH[facility]O SAHA Comment:Testing performed by : [address] [address] Lymphocyte abs 1.09 0.80 - 3.30 K/cumm [facility] Comment:Testing performed by : [address], [place]., [address] Monocyte abs 0.86(H) 0.20 - 0.80 K/cumm [facility] Comment:Testing performed by : [address], [place]., [address] Eosinophil abs 0.09 0.00 - 0.50 K/cumm [facility] Comment:Testing performed by : [address], [place]., [address] Basophil abs 0.04 0.00 - 0.10 K/cumm [facility] Comment:Testing performed by : [address] [address] Neutrophil pct 55.1 % [facility] Comment: Interpretive Data Percent cell count reference ranges are not reported, since discordance with absolute values may lead to misinterpretation of CBC data. Current Interpretive Data was last revised on 2017. Testing performed by: [address] [address] Imm gran pct 0.2 % [facility] Comment: Interpretive Data Percent cell count reference ranges are not reported, since discordance with absolute values may lead to misinterpretation of CBC data. Current Interpretive Data was last revised on 2017. Testing performed by: [address] [address] Lymphocyte pct 23.4 % [facility] Comment: Interpretive Data Percent cell count reference ranges are not reported, since discordance with absolute values may lead to misinterpretation of CBC data. Current Interpretive Data was last revised on 2017. Testing performed by: [address] [address] Monocyte pct 18.5 % [facility] Comment: Interpretive Data Percent cell count reference ranges are not reported, since discordance with absolute values may lead to misinterpretation of CBC data. Current Interpretive Data was last revised on 2017. Testing performed by: [address] [address] Eosinophil pct 1.9 % [facility] Comment: Interpretive Data Percent cell count reference ranges are not reported, since discordance with absolute values may lead to misinterpretation of CBC data. Current Interpretive Data was last revised on 2017. Testing performed by: [address] [address] Basophil pct 0.9 % [facility] SAHA Comment: Interpretive Data Percent cell count reference ranges are not reported, since discordance with absolute values may lead to misinterpretation of CBC data. Current Interpretive Data was last revised on 2017. Testing performed by: [address] [address] Blood 01/14/2025 9:47 AM CDT 01/14/2025 9:48 AM CDT Latrice Nelson LAB BLOOD ORDERABLES Final Result Performing Organization Address [facility] [address] [facility] Co de Phone Number [address] [place] [address] * Iron profile w/ IBC (01/14/2025 9:47 AM CDT) Pathologist [facility] Iron 120 50 - 150 mcg/dL Comment:Testing performed by : [address] [address] TIBC 261 250 - 400 mcg/dL [facility] Comment:Testing performed by : [address] [address] Transferrin saturation 46 20 - 50 % [facility] Comment:Testing performed by : [address] [address] Blood 01/14/2025 9:47 AM CDT 01/14/2025 11:39 AM CDT Latrice Nelson SERVICE STATION CONSOLE OPERATOR LAB BLOOD ORDERABLES Final Result Performing Organization Address City/[facility] [address]/[facility] Co de Phone Number [address] [address] * (ABNORMAL) CBC with auto differential (01/14/2025 9:47 AM CDT) WBC 4.66 3.80 - 9.90 K/cumm Comment:Testing performed by : [address], [address] Hgb 17.8(H) 13.0 - 17.5 g/dL [facility] Comment:Testing performed by : [address] [address] Hct 50.1 38.9 - 50.3 % [facility] Comment:Testing performed by : [address], [address] Plt 144(L) 150 - 400 K/cumm [facility] Comment:Testing performed by : [address], [address] MPV 10.2 9.1 - 12.3 fL [facility] Comment:Testing performed by : [address], [address] RBC 5.29 4.30 - 5.80 M/cumm [facility] Comment:Testing performed by : [address], [address] MCV 94.7 81.3 - 96.4 fL [facility] Comment:Testing performed by : [address], [address] MCH 33.6(H) 27.1 - 33.3 pg [facility] Comment:Testing performed by : [address] [address] MCHC 35.5 32.3 - 35.7 g/dL [facility] Comment:Testing performed by : [address], [address] RDW CV 15.1(H) 11.1 - 14.9 % [facility] Comment:Testing performed by : [address], [address] RDW SD 52.3(H) 35.7 - 48.1 fL [facility] Comment:Testing performed by : [address], [address] NRBC abs 0.00 0.00 - 0.01 K/cumm [facility] Comment:Testing performed by : [address] [address] ANC Prelim 2.57 1.50 - 6.50 K/cumm [facility] SAHA Comment: Interpretive Data The rapid ANC is a preliminary automated count and may vary from the final ANC (Neut Abs) reported in the WBC differential that follows. Current interpretive data was last revised 2024. Testing performed by: [address] [address] Blood 01/14/2025 9:47 AM CDT 01/14/2025 9:48 AM CDT Latrice Nelson SERVICE STATION CONSOLE OPERATOR LAB BLOOD ORDERABLES Final Result [facility] [place] [address] * (ABNORMAL) Reticulocyte Count (01/14/2025 9:47 AM CDT) [facility] Retics, absolute 77 20 - 87 K/cumm Comment:Testing performed by : [address] [address] Retics 1.5 0.4 - 2.9 % [facility] Comment:Testing performed by : [address] [address] Reticulocyte Hgb 40.1(H) 30.5 - 38.0 pg [facility] SAHA Comment:Testing performed by : [address] [address] Blood 01/14/2025 9:47 AM CDT 01/14/2025 9:48 AM CDT Latrice Nelson NP LAB BLOOD ORDERABLES Final Result [facility]2 [facility] [place] [address] * Ferritin (01/14/2025 9:47 AM CDT) [facility] Ferritin 146 30 - 400 ng/mL Comment:Testing performed by : [address] [address] Blood 01/14/2025 9:47 AM CDT 01/14/2025 11:39 AM CDT Latrice Nelson NP LAB BLOOD ORDERABLES Final Result [facility] [address] [facility] [place] [address] * (ABNORMAL) Comprehensive metabolic panel (01/14/2025 9:47 AM CDT) Sodium 132(L) 135 - 145 mmol/L Comment:Testing performed by : [address] [address] Potassium, pl 4.4 3.3 - 4.9 mmol/L [facility] Comment:Testing performed by : [address] [address] Chloride 100 97 - 110 mmol/L [facility] Comment:Testing performed by : [address] [address] CO2 23 22 - 32 mmol/L [facility] Comment:Testing performed by : [address] [address] Anion gap 9 2 - 15 mmol/L [facility] Comment:Testing performed by : [address] [address] BUN 8 6 - 25 mg/dL [facility] Comment:Testing performed by : [address] [address] Creatinine 0.60(L) 0.80 - 1.30 mg/dL [facility] Comment:Testing performed by : [address] [address] Glucose 95 70 - 199 mg/dL CH[facility] [...] was last revised 2022. Testing performed by: [facility], [address] [place] [address]., [address] Calcium 9.3 8.5 - 10.3 mg/dL [facility] Comment:Testing performed by : [address] [address] Bilirubin, total 0.4 0.1 - 1.2 mg/dL [facility] Comment:Testing performed by : [address] [address] Protein, pl 7.6 6.5 - 8.5 g/dL [facility] Comment:Testing performed by : [address] [address] Albumin 3.9 3.5 - 5.0 g/dL [facility] Comment:Testing performed by : [address] [address] Alk phos 130 40 - 130 Units/L [facility] Comment:Testing performed by : [address] [address] ALT 38 7 - 55 Units/L [facility] Comment:Testing performed by : [address] [address] AST 40 10 - 50 Units/L [facility] Comment:Testing performed by : [address] [address] Blood 01/14/2025 9:47 AM CDT 01/14/2025 9:48 AM CDT Narrative [facility] - 01/14/2025 10:13 AM CDT Has the patient fasted?->No Latrice Nelson NP LAB BLOOD ORDERABLES Final Result [facility] [address] [facility] [place] [address] from Last 3 Months Insurance MEDICARE ADVANTAGE MEDICARE ADVANTAGE Care Teams Animal Behaviorist Relationship Specialty Start Date End Date Angie Khan PA PCP - General Physician Roving Carrier 01/28/19 Daxa Nolen, SERVICE STATION CONSOLE OPERATOR [address] [place] [id number] Nurse Practitioner Medical Oncology 01/12/23
--- OUTSIDE RECORDS SUMMARY | 2025-03-17 13:25 | XMS_ITS | Data Portability ---
Author Organization [facility] [employer], Main Office Address [address] [place] [address] Assessment No assessment recorded. Plan of Treatment Reminders Order Date Submit Date Provider Last Modified By Organization Details Last Modified Time Details Appointments None recorded. Lab HbA1c (hemoglobi n A1c), blood 2022 023 [email or web address] [facility], [address], [place], [address], 3 09:03:54 hepatic function panel, serum 2022 023 [email or web address] [facility], [address], [place], [address], 3 09:03:23 BMP, serum or plasma 2022 023 [email or web address] [facility], [address], [place], [address], 3 09:03:30 CBC w/ auto diff 2022 023 [email or web address] [facility], [address], [place], [address], 3 09:03:36 lipid panel, serum 2022 023 [email or web address] [facility], [address], [place], [address], 3 09:04:07 TSH + free T4, serum 2022 023 [email or web address] [facility], [address], [place], [address], 3 08:56:24 testostero ne, free + total, serum 2022 023 [email or web address] [facility], [address], [place], [address], 3 09:03:45 Referral None recorded. Procedures None recorded. Surgeries None recorded. Imaging None recorded. Medication Orders None recorded. Patient TargetsNo targets recorded. Patient InstructionsNo instructions recorded. Reason for Referral None Reported. Results Created Date Observation Date Name Description Value Unit Range Abnormal Flag Note LastModifiedBy Organization Detail LastModifiedTime 10/06/1910/06/2022 XR, chest , 2 view No observ ation record ed. [id number] [facility] [address], [place], [address], 11/01/2022 05:03:40 Result Notes None recorded. Problems Name Problem SNOMED Code Status Onset Date Resolution Date Notes Provider Name and Address Organization Details Recorded Time Leukopenia 10037738 Active 2022 ROBERT Tucker [address], [address], [place], [address] , [employer] 3 15:35:24 Acute sinusitis 79507599 Active 2022 ROBERT Tucker [address], [address], [place], [address] , [employer] 3 13:54:06 Benign essential hypertensi on 2734040 Active 2018 Not Available [facility] 3 04:52:15 Lesion of skin of face 616878401019 Active 2021 Not Available [facility] 3 04:52:15 Blood glucose outside reference range 520095785 Active 2021 Not Available [employer] 3 04:52:15 Asthma 336646729 Active 2018 Not Available [facility] 3 04:52:15 Productive cough 20608829 Active 2022 Not Available [facility] 3 04:52:16 Hemochroma tosis 933491325 Active 2021 Not Available [facility] 3 04:52:16 Hypothyroi dism 98309693 Active 2018 Not Available [facility] 3 04:52:16 Hypogonadi sm 90161002 Active 2018 Not Available [facility] 3 04:52:16 Male hypogonadi sm 65852878 Active 2021 Not Available [facility] 3 04:52:16 Cough 69142615 Active 2022 Not Available [facility] 3 04:52:16 Upper respirator y infection 86090008 Active 2022 Not Available [facility] 3 04:52:16 Hyperlipid emia 78027133 Active 2018 Not Available [facility] 3 04:52:16 Erectile dysfunctio n 805609133 Active 2021 Not Available [facility] 3 04:52:16 Problem Notes None recorded. Procedures Surgical History Date Name Laterality Status Provider Name and Address Organization Details Recorded Time 01/11/20 Colonoscopy completed Not Available [facility] 11/02/19 04:42:30 repair of umbilical hernia completed Not Available [facility] 11/01/2022 04:42:30 Carpal tunnel surgery completed Not Available [facility] 11/01/2022 04:42:30 Imaging Results None recorded. Procedure Notes None recorded. Medical Equipment None Reported. Allergies No known drug allergies Medications Name Sig Start Date Stop Date Status Note LastModified by Organization Details LastModified Time verapamil ER (SR) 120 mg tablet,exte nded release TAKE 2 TABLETS BY MOUTH TWICE DAILY. AROUND THE CLOCK active Not Available Not Available No t Available BD Luer-Cullen Syringe 3 mL 23 x 1 USE DIRECTED USE ONE SYRINGE EVERY 3 WEEKS active Not Available Not Available No t Available tizanidine 4 mg tablet TAKE 1 TABLET BY MOUTH EVERY 6 HOURS NEEDED active Not Available Not Available No t Available meloxicam 15 mg tablet TAKE 1 TABLET BY MOUTH EVERY DAY WITH MEALS active Not Available Not Available No t Available prednisone 20 mg tablet Take 2 tablets every day by oral route for 5 days. 01/19 completed Not Available Not Available Not Available niacin ER 500 mg tablet,exte nded release 24 hr TAKE 1 TABLET DAILY DIRECTED active Not Available Not Available No t Available Zithromax Z-Cachorro 250 mg tablet TAKE 2 TABLETS (500 MG) BY ORAL ROUTE ONCE DAILY FOR 1 DAY THEN 1 TABLET (250 MG) BY ORAL ROUTE ONCE DAILY FOR 4 DAYS 01/19 completed Not Available Not Available Not Available sildenafil 100 mg tablet TAKE 1 TABLET NEEDED, MAX 100 MG IN 24 HOURS active Not Available Not Available No t Available simvastatin 20 mg tablet TAKE 1/2 (ONE-HALF ) TABLET BY MOUTH ONCE DAILY DIRECTED active Not Available Not Available No t Available BD Safety-Cullen Detachable Needle 3 mL 22 gauge x 1 1/2 syringe USE WITH TESTOSTER ONE INJECTION S EVERY 3 WEEKS active Not Available Not Available No t Available levothyroxi ne 200 mcg tablet TAKE 1 TABLET BY MOUTH ONCE DAILY active Not Available Not Available No t Available testosteron e cypionate 200 mg/mL intramuscul ar oil INJECT 1 MLS EVERY 3 WEEKS INTRAMUSC ULARLY active Not Available Not Available No t Available cefuroxime axetil 500 mg tablet Take 1 tablet every 12 hours by oral route. 01/19 completed Not Available Not Available Not Available albuterol sulfate HFA 90 mcg/actuati on aerosol inhaler INHALE 2 PUFFS EVERY 4-6 HOURS BY INHALATIO N ROUTE NEEDED. active Not Available Not Available No t Available fluocinonid e 0.05 % topical cream APPLY TO AFFECTED AREAS ON EXTREMITI ES TWICE DAILY FOR NO MORE THAN 3 WEEKS IN A ROW BEFORE TAKING A ONE WEEK BREAK. REPEAT IF NEEDED active Not Available Not Available No t Available cefdinir 300 mg capsule 02/25 completed Not Available Not Available Not Available losartan 100 mg tablet TAKE 1 TABLET BY MOUTH ONCE DAILY active Not Available Not Available No t Available fluticasone propionate 50 mcg/actuati on nasal spray,suspe nsion SPRAY 2 SPRAY(S) 1 TIME PER DAY PRN EACH NOSTRIL active Not Available Not Available No t Available BD Luer-Cullen Syringe 3 mL 22 x 1 1/2 USE WITH TESTOSTER ONE INJECTION S EVERY 2 WEEKS active Not Available Not Available No t Available diazepam 5 mg tablet TAKE 1 TABLET BY MOUTH AT BEDTIME NEEDED 01/18 completed Not Available Not Available Not Available verapamil ER 240 mg 24 hr capsule,ext ended release 07/28 completed Not Available Not Available Not Available amoxicillin 875 mg-vazquez faith clavulanate 125 mg tablet TAKE 1 TABLET BY MOUTH EVERY 12 HOURS 03/14 completed Not Available Not Available Not Available verapamil ER 120 mg 24 hr capsule,ext ended release Take 2 capsules twice a day by oral route as directed for 90 days. active Not Available Not Available No t Available BD Integra Syringe 3 mL 23 gauge x 1 USE WITH TESTOSTER ONE INJECTION S EVERY 3 WEEKS active Not Available Not Available No t Available Breo Ellipta 100 mcg-25 mcg/dose powder for inhalation INHALE 1 PUFF BY MOUTH ONCE DAILY active Not Available Not Available No t Available Flucelvax Quad (PF) 60 mcg (15 mcg x 4)/0.5 mL IM syringe TO BE ADMINISTE RED BY PHARMACIS T FOR IMMUNIZAT ION 02/25 completed Not Available Not Available Not Available Fluzone High-Dose Quad (PF) 240 mcg/0.7 mL IM syringe PHARMACY ADMINISTE RED 06/17 completed Not Available Not Available Not Available Flowflex COVID-19 Antigen Home Test kit 01/19 completed Not Available Not Available Not Available Vitals Date Recorded Body mass index (BMI) Body height Oxygen saturation Oxygen saturation in Arterial blood by Pulse oximetry Heart rate Body temperature Body weight Systolic And Diastolic Provider Name and Address Organization Details Last Updated DateTime 3 32.5 kg/m2 175.26 cm 95 % 95 % 61 /min 96.9 [degF] 60813.3 2 g 116/60 mm[Hg] Not Available [facility] 3 04:48:41 Date Recorded Body mass index (BMI) Body height Oxygen saturation Oxygen saturation in Arterial blood by Pulse oximetry Heart rate Respiratory rate Body temperature Body weight Systolic And Diastolic Provider Name and Address Organization Details Last Updated DateTime 2 33.3 kg/m2 175.26 cm 96 % 96 % 57 /min 16 /min 97.8 [degF] 932410 g 132/72 mm[Hg] Not Available [facility] 3 04:48:41 Date Recorded Body height Body mass index (BMI) Body weight Body temperature Respiratory rate Oxygen saturation Oxygen saturation in Arterial blood by Pulse oximetry Heart rate Systolic And Diastolic Provider Name and Address Organization Details Last Updated DateTime 3 175.26 cm 33.7 kg/m2 606274. 06 g 97.7 [degF] 16 /min 96 % 96 % 94 /min 130/72 mm[Hg] Jennifer Iniguez [facility] [employer] [facility] 3 15:27:56 Date Recorded Body mass index (BMI) Body height Oxygen saturation Oxygen saturation in Arterial blood by Pulse oximetry Heart rate Respiratory rate Body temperature Body weight Systolic And Diastolic Provider Name and Address Organization Details Last Updated DateTime 2 34.1 kg/m2 175.26 cm 94 % 94 % 56 /min 16 /min 97.3 [degF] 183115. 84 g 140/80 mm[Hg] Not Available [facility] 3 04:48:41 Date Recorded Body height Body temperature Body mass index (BMI) Body weight Respiratory rate Oxygen saturation Oxygen saturation in Arterial blood by Pulse oximetry Heart rate Systolic And Diastolic Provider Name and Address Organization Details Last Updated DateTime 3 175.26 cm 97.8 [degF] 35.6 kg/m2 717444. 76 g 16 /min 97 % 97 % 59 /min 130/82 mm[Hg] Jennifer Iniguez [employer] [facility] [employer] [facility] 3 15:08:21 Social History Question Answer Notes LastModified by Organizat ion Details LastModified Time Tobacco Smoking Status Former Smoker Not Available [facility] 11/01/2022 04:32:27 What Is Your Level Of Caffeine Consumption? Occasional [id number] Information not available 11/01/2022 How Much Tobacco Do You Chew? None [id number] Information not available 11/01/2022 In The 14 Days Before Symptom Onset, Have You Had Close Contact With A Laboratory-confir med COVID-19 While That Case Was Ill? No [id number] Information not available 11/01/2022 In The 14 Days Before Symptom Onset, Have You Had Close Contact With A Person Who Is Under Investigation For COVID-19 While That Person Was Ill? No [id number] Information not available 11/01/2022 What Type Of Diet Are You Following? REGULAR [id number] Information not available 11/01/2022 Which Illicit Or Recreational Drugs Have You Used? None MIGRATION.[id number] 3551 Information not available 11/01/2022 Have There Been Any Changes To Your Family Or Social Situation? No MIGRATION.[id number] 6126 Information not available 11/01/2022 Do You Use Insect Repellent Routinely? No [id number].[id number] Information not available 11/01/2022 What Is Your Relationship Status? [id number].[id number] Information not available 11/01/2022 Do You Use Your Seat Belt Or Car Seat Routinely? Yes [id number].[id number] 3133 Information not available 11/01/2022 Do You Have Smoke And Carbon Monoxide Detectors In Your Home? Yes [id number].[id number] 8526 Information not available 11/01/2022 How Much Tobacco Do You Smoke? No MIGRATION.[id number] 1306 Information not available 11/01/2022 Do You Use Sunscreen Routinely? Yes MIGRATION.[id number] 3221 Information not available 11/01/2022 Have You Recently Traveled Abroad? No MIGRATION.[id number] 0860 Information not available 11/01/2022 Do You Have Any Dietary Restrictions? No MIGRATION.251729 2911 Information not available 11/01/2022 Sex: Unknown Functional Status Question Answer Note LastModified by Organizat ion Details LastModified Time Do you use any illicit or recreational drugs? No MIGRATION.[id number] 5035 Information not available 11/01/2022 Do you or have you ever used any other forms of tobacco or nicotine? No MIGRATION.662079 2723 Information not available 11/01/2022 What is your level of alcohol consumption? Occasional MIGRATION.182983 0264 Information not available 11/01/2022 Do you or have you ever used smokeless tobacco? Never used smokeless tobacco MIGRATION.277620 9828 Information not available 11/01/2022 Do you have transportation difficulties? No MIGRATION.[id number] 2409 Information not available 11/01/2022 Are you able to walk? YESWOREST MIGRATION.169518 2309 Information not available 11/01/2022 Do you have difficulty doing errands alone? No MIGRATION.298927 6505 Information not available 11/01/2022 Are you able to care for yourself? Yes MIGRATION.758407 8259 Information not available 11/01/2022 Do you have difficulty dressing or bathing? No MIGRATION.824791 0896 Information not available 11/01/2022 Do you or have you ever used e-cigarettes or vape? Never used electronic cigarettes MIGRATION.055403 8278 Information not available 11/01/2022 What is your exercise level? None MIGRATION.[id number] 7200 Information not available 11/01/2022 Mental Status None recorded. Family History Relationship Description Onset Age of this Age Resolved Age Notes LastModified by Organization Details LastModified Time Mother Heart disease [id number] Not available 11/01/2022 04:42:35 Father Malignant neoplasm of lung [id number] Not available 11/01/2022 04:42:35 Medical History Condition Response LUNG DISEASE/DISORDER Y HIGH CHOLESTEROL / HYPERLIPIDEMIA Y ASTHMA Y Immunizations Vaccine Type Date Status Note Provider Nam e and Address Organization Details Recorded Time COVID-19, mRNA, LNP-S, PF, 30 mcg/0.3 mL dose 2 completed Not Available [facility] 11/01/2022 05:02:52 influenza, unspecified formulation 0 completed Not Available [facility] 11/01/2022 05:02:52 Influenza, high-dose, trivalent, PF 9 completed Not Available [facility] 11/01/2022 05:02:52 Past Encounters Encounter ID Performer Location Encounter Start Date Encounter Closed Date Diagnosis/Indication Diagnosis SNOMED-CT Code Diagnosis ICD10 Code Diagnosis Note [id number] ROBERT Tucker [facility] [place] [address] [place] [address] 01/07/2021 00:00:00 01/27/2021 23:35:29 [id number] ROBERT Tucker [facility] [place] [address] [place] [address] 07/08/2021 00:00:00 08/01/2021 23:51:45 [id number] Horacio Prieto MD [facility] [place] [address] [place] [address] 01/09/2022 00:00:00 01/31/2022 18:50:23 [id number] ROBERT Tucker [facility] [place] [address] [place] [address] 07/17/2022 00:00:00 08/02/2022 18:47:38 [id number] ROBERT Tucker [facility] [place] [address] [place] [address] 10/06/2022 00:00:00 10/31/2022 17:56:39 [id number] ROBERT Tucker [facility] [place] [address] [facility] [place] [address] 01/22/2023 15:15:32 01/22/2023 15:55:40 Benign essential hypertension 9929650 I10 stable on medication s. Hyperlipidemia 37196072 E78.5 LDL could be better , 117 currently. on statin therapy. add exercise, improve diet choices Hypothyroidism 03836845 E03.9 stable on supplement . T4 does run high normal but stable and tolerating well. Asthma 352048254 J45.90 9 stable on albuterol and breo Blood gluc ose outside reference range 301739098 R73.09 5.7% stable. monitoring each lab. keep carbs and sugars controlled . add exercise Hypogonadism 46452758 E2 9.1 on testostero ne supplement . labs stable. PSA normal range. repeat labs in jun Long-term drug therapy 514405039 Z79.899 next labs due in jun. Leukopenia 74085887 D72. 819 noted on december labs from our office but WBC at 4.5 with recent hematology appt. no further testing needed. suspect related to his acute illness that was present in oct and lingering. [id number] ROBERT Tucker [facility] [place] [address] [facility] [place] [address] 07/18/2023 14:50:11 07/18/2023 15:43:12 Benign essential hypertension 9182439 I10 stable on medication s. Hyperlipidemia 66949020 E78.5 stable labs on simvastati n 20mg daily. Hypothyroidism 17428879 E03.9 stable on supplement . T4 does run high normal but stable and tolerating well. Asthma 672530949 J45.90 9 stable on albuterol and breo Blood gluc ose outside reference range 522152875 R73.09 5.8% stable. monitoring each lab. keep carbs and sugars controlled . add exercise Hypogonadism 43126185 E2 9.1 on testostero ne supplement . labs stable. PSA normal range in december 2022 Long-term drug therapy 682545918 Z79.899 Health Concerns Section Related Observation LastModified by Organization Detai ls LastModified Time None Recorded Concern Status LastModified by Organization Details LastModified Time None Recorded Advance Directives Directive None Recorded Payers Insurance Date Sequence Insurance Name Policy Number Policy Joshi Covered Member ID Joshi Member ID Guarantor Name 03/14/2023 2 [place] Henry Grant [id number] Henry Murphy 07/30/[address] [facility] (MEDICARE REPLACEMENT/A DVANTAGE - HMO) [id number] Henry Murphy [id number] Henry Murphy 03/14/[address] [facility] [id number] Henry Murphy [id number] Henry Murphy Notes Date Note Type Note Provider Name and Address Organization Details Recorded Time 01/10/20 22 text/ht ml Asthma F/UReported bypatient.Quality:well-controlle d with antiasthmatics Severity:able to sleep during episode; does not interfere with daily activities Onset/Timing:chronic Status:same Modifying Factors:avoidance of triggers; compliance with asthma regimen; short-acting beta agonist Associated Symptoms:no fever; no fatigue; no irritability; no cough; normal appetite; no changes in productivity; no shortness of breath Antiasthmatics:compliant with maintenance asthma medication; no prior adverse reaction(s)HyperlipidemiaReporte d bypatient.Duration:chronic Control:usually well controlled Current Therapy:currently taking: (simvastatin 20mg) Compliance:compliant;noncomplian t with diet(a little);does not exercise Complications:no coronary artery disease; no peripheral artery disease; no cardiovascular disease Risk Factors:hypertensionHypertension Reported bypatient.Duration:has noted for years Onset/Timing:better Alleviating Factors:medication Self Care:not under emotional stress Associated Symptoms:no shortness of breath; no fatigue; no palpitations; no decline in exercise capacity; no snoringHypothyroidismReported bypatient.Quality:not changing Duration:constant Onset/Timing:still present Context/Risk:normal thyroid levels; no history of head or neck radiation during childhood; no history of thyroid disease; no history of hyperthyroidism; no excess iron exposure;history of hypothyroidism Modifying Factors:medication Exerciseno exercise Associated Symptoms:no cold intolerance; no heat intolerance; no weight loss; no weight gain; no double vision; no dry eyes; no hoarseness; no difficulty swallowing; no neck masses; no deepening of the voice; no fast heart rate; no increased blood pressure; no palpitations; no chest pain; no chest tightess or pressure; no constipation; no diarrhea; no vomiting; no decreased appetite; no loose stools; no irregular menstrual periods; no excessive sweating; no joint pain; no numbness; no tingling of the hands or feet; no dry skin; no tremor; no nervousness; no anxiety; no depression; no fatigue; no sleep difficulties; no skin changes; no hair changes Not Available [facility] 01/31/2022 18:50:23 07/17/20 22 text/ht ml HyperlipidemiaReported bypatient.Duration:chronic Control:usually well controlled Current Therapy:currently taking: (simvastatin 20mg) Compliance:compliant;noncomplian t with diet;does not exercise Complications:no coronary artery disease; no peripheral artery disease; no cardiovascular disease Risk Factors:hypertensionHypertension Reported bypatient.Duration:has noted for years Onset/Timing:better Alleviating Factors:medication Self Care:not under emotional stress Associated Symptoms:no shortness of breath; no fatigue; no palpitations; no decline in exercise capacity; no snoringHypothyroidismReported bypatient.Quality:not changing Duration:constant Onset/Timing:still present Context/Risk:normal thyroid levels; no history of head or neck radiation during childhood; no history of thyroid disease; no history of hyperthyroidism; no excess iron exposure;history of hypothyroidism Modifying Factors:medication Exerciseno exercise Associated Symptoms:no cold intolerance; no heat intolerance; no weight loss; no weight gain; no double vision; no dry eyes; no hoarseness; no difficulty swallowing; no neck masses; no deepening of the voice; no fast heart rate; no increased blood pressure; no palpitations; no chest pain; no chest tightess or pressure; no constipation; no diarrhea; no vomiting; no decreased appetite; no loose stools; no irregular menstrual periods; no excessive sweating; no joint pain; no numbness; no tingling of the hands or feet; no dry skin; no tremor; no nervousness; no anxiety; no depression; no fatigue; no sleep difficulties; no hair changes;skin changes(L side of face) Not Available [employer] [facility] [employer] [facility] 08/02/2022 18:47:38 10/06/19 23 text/ht ml CoughReported bypatient.Quality:productive Severity:worsening Duration:acute (<3 weeks) Context:non-smoker; worse at night Associated Symptoms:chills;sputum production Not Available [employer] [facility] [employer] [facility] 10/31/2022 17:56:39 01/23/20 23 text/ht ml HyperlipidemiaReported bypatient.Duration:chronic Control:usually well controlled Compliance:compliant; compliant with diet;does not exercise Complications:no coronary artery disease; no peripheral artery disease; no cardiovascular disease Risk Factors:hypertensionHypertension Reported bypatient.Duration:has noted for years Onset/Timing:better Alleviating Factors:medication Associated Symptoms:no shortness of breath; no fatigue; no palpitations; no decline in exercise capacity; no snoringHypothyroidismReported bypatient.Quality:not changing Duration:constant Onset/Timing:gone now Context/Risk:normal thyroid levels; no history of head or neck radiation during childhood; no history of thyroid disease; no history of hyperthyroidism; no excess iron exposure;history of hypothyroidism;female gender Modifying Factors:medication Exerciseno exercise Associated Symptoms:no cold intolerance; no heat intolerance; no weight loss; no weight gain; no double vision; no dry eyes; no hoarseness; no difficulty swallowing; no neck masses; no deepening of the voice; no fast heart rate; no increased blood pressure; no palpitations; no chest pain; no chest tightess or pressure; no constipation; no diarrhea; no vomiting; no decreased appetite; no loose stools; no irregular menstrual periods; no excessive sweating; no joint pain; no numbness; no tingling of the hands or feet; no dry skin; no tremor; no nervousness; no anxiety; no depression; no fatigue; no sleep difficulties; no skin changes; no hair changes ROBERT Tucker [address] [id number], [place], [id number], [employer] [facility] [employer] [facility] 01/29/2023 12:32:29 07/18/20 23 text/ht ml HyperlipidemiaReported bypatient.Duration:chronic Control:usually well controlled Compliance:compliant;noncomplian t with diet;does not exercise Complications:no coronary artery disease; no peripheral artery disease; no cardiovascular disease Risk Factors:hypertensionHypertension Reported bypatient.Duration:has noted for years Onset/Timing:better Alleviating Factors:medication Associated Symptoms:no fatigue; no palpitations; no decline in exercise capacity; no snoring;shortness of breathHypothyroidismReported bypatient.Quality:not changing Duration:constant Onset/Timing:still present Context/Risk:normal thyroid levels; no history of head or neck radiation during childhood; no history of thyroid disease; no history of hyperthyroidism; no excess iron exposure;history of hypothyroidism Modifying Factors:medication Exerciseno exercise Associated Symptoms:no cold intolerance; no heat intolerance; no weight loss; no weight gain; no double vision; no dry eyes; no hoarseness; no difficulty swallowing; no neck masses; no deepening of the voice; no fast heart rate; no increased blood pressure; no palpitations; no chest pain; no chest tightess or pressure; no constipation; no diarrhea; no vomiting; no decreased appetite; no loose stools; no irregular menstrual periods; no excessive sweating; no joint pain; no numbness; no tingling of the hands or feet; no dry skin; no tremor; no nervousness; no anxiety; no depression; no fatigue; no sleep difficulties; no skin changes; no hair changes ROBERT Tucker [address] [address], [place], [id number], [employer] [facility] [employer] [facility] 07/29/2023 10:07:19
--- OUTSIDE RECORDS SUMMARY | 2025-03-17 13:25 | XMS_ITS | Data Portability ---
Author Organization [facility] Address [address] [place] [address] Care Team Providers Care Senior Restaurant Manager Name Role Phone ANGIE KHAN Primary Care Provider Assessment No assessment recorded. Plan of Treatment Reminders Order Date Submit Date Provider Last Modified By Organization Details Last Modified Time Details Appointments ANY 15 2024 08:00A M ROBERT Tucker Not available Not available Not available Lab PSA, total, serum or plasma 2024 025 [email or web address] [facility], [address], [place], [address], 01/20/2025 09:22:58 testoster one, free + total, serum 2024 025 [email or web address] [facility], [address], [place], [address], 01/20/2025 09:22:58 CBC w/ auto diff 2024 025 [email or web address] [facility], [address], [place], [address], 01/20/2025 09:22:58 hepatic function panel, serum 2024 025 [email or web address] [facility], [address], [place], [address], 01/20/2025 09:22:58 BMP, serum or plasma 2024 025 [email or web address] [facility], [address], [place], [address], 01/20/2025 09:22:58 HbA1c (hemoglob in A1c), blood 2024 025 [email or web address] [facility], [address], [place], [address], 01/20/2025 09:22:58 lipid panel, serum 2024 025 [email or web address] [facility], [address], [place], [address], 01/20/2025 09:22:58 TSH + free T4, serum 2024 025 [email or web address] [facility], [address], [place], [address], 01/20/2025 09:22:58 CBC w/ auto diff 2023 024 RE[facility]UGIO [facility], [address], [place], [address], 08/08/2024 20:09:51 hepatic function panel, serum 2023 024 REFUGIO [facility]ney, [address], [place], [address], 08/08/2024 20:09:48 BMP, serum or plasma 2023 024 RE[facility], [address], [place], [address], 08/08/2024 20:09:49 HbA1c (hemoglob in A1c), blood 2023 024 REFUGIO Barney, [address], [place], [address], 08/08/2024 20:09:50 PSA, total, serum or plasma 2023 024 REFUGIO Barney, [address], [place], [address], 08/08/2024 20:09:52 testoster one, free + total, serum 2023 024 REFUGIO [facility]ney, [address], [place], [address], 08/08/2024 20:09:45 lipid panel, serum 2023 024 REFUGIO Barney, [address], [place], [address], 08/08/2024 20:09:46 TSH + free T4, serum 2023 024 REFUGIO Barney, [address], [place], [address], 08/08/2024 20:09:47 CBC w/ auto diff 2023 024 REFUGIO Barney, [address], [place], [address], 01/23/2024 03:37:12 hepatic function panel, serum 2023 024 REFUGIO Barney, [address], [place], [address], 01/23/2024 03:37:09 BMP, serum or plasma 2023 024 REFUGIO [facility], [address], [place], [address], 01/23/2024 03:37:10 HbA1c (hemoglob in A1c), blood 2023 024 REFUGIO Barney, [address], [place], [address], 01/23/2024 03:37:11 lipid panel, serum 2023 024 [place] [facility], [address], [place], [address], 01/23/2024 03:37:08 PSA, total, serum or plasma - PLEASE CANCEL ORDER IS LAST PSA WAS NOT 12 MONTHS AGO. 2023 024 [email or web address] [id number] [facility], [address], [place], [address], 02/13/2024 09:00:20 TSH + free T4, serum 2023 024 [place], [address], [place], [address], 01/23/2024 03:37:07 Referral hand surgeon referral 2024 025 denia Wan MD, [address] [facility] [address], [place], [address], 03/03/2025 16:23:43 Procedures lexiscan cardiolit e stress test (PROC) 2023 024 [facility] (Cardiology & [facility]), [address] [facility] [address], [place], [address], 04/28/2024 18:28:02 Surgeries None recorded. Imaging LDCT, chest, for lung cancer screening [address] [facility] (Imaging), [address] [facility] [address], [place], [address], 03/11/2025 16:58:32 US, liver [address] (Imaging), [address] [facility] [address], [place], [address], 03/11/2025 12:26:37 LDCT, chest, for lung cancer screening 2023 024 [facility] (Imaging), [address], [place], [address], 03/11/2024 18:10:32 Medication Orders levothyro xine 175 mcg tablet 2024 025 [facility] [address], [address], [place], [address], 01/20/2025 09:23:08 hydrochlo rothiazid e 25 mg tablet 2023 024 [facility] [address], [address], [place], [address], 07/21/2024 10:37:08 verapamil ER 240 mg 24 hr capsule,e xtended release 2023 024 [email or web address] [address], [address], [place], [address], 07/21/2024 10:20:24 Patient TargetsNo targets recorded. Patient Instructions Encounter Date Encounter Id Patient Instructions Last Modified By Organization Details Last Modified Time 01/21/2024 [id number] A healthy lifestyle: care instructions [email or web address] Not available 02/03/2024 23:05:47 07/21/2024 [id number] A healthy lifestyle: care instructions Not available 07/21/2024 10:36:57 01/20/2025 [id number] A healthy lifestyle: care instructions Not available 01/20/2025 09:22:58 Reason for Referral Hand Surgeon Referral for Pa in in left thumb Referring Physician: Angie Khan, Internal Medicine, Encounter Date: 01/20/2025 Results Created Date Observation Date Name Description Value Unit Range Abnormal Flag Note LastModifiedBy Organization Detail LastModifiedTime 01/22/20 24 01/23/2024 TSH+F REE T4 TSH 0.041 uIU/m L 0.450- 4.500 below low normal Not Available [facility] ([facility]) [address] [facility], [place], [address], 01/23/2024 03:37:07 01/22/20 24 01/23/2024 TSH+F REE T4 T4,free(dire ct) 1.74 NG/dL 0.82-1 .77 Not Available [facility] ([facility]) [address] [place], [address], 01/23/2024 03:37:07 01/22/20 24 01/23/2024 LIPID PANEL cholesterol, total 181 mg/dL 100-19 9 Not Available [facility] ([facility]) [address] [place], [address], 01/23/2024 03:37:08 01/22/20 24 01/23/2024 LIPID PANEL triglyceride s 56 mg/dL 0-149 Not Available [facility]) [address] [place], [address], 01/23/2024 03:37:08 01/22/20 24 01/23/2024 LIPID PANEL HDL cholesterol 66 mg/dL >39 Not Available [facility]) [address] [place], [address], 01/23/2024 03:37:08 01/22/20 24 01/23/2024 LIPID PANEL VLDL cholesterol michelle 11 mg/dL 5-40 Not Available [facility] ([facility]) [address] [place], [address], 01/23/2024 03:37:08 01/22/20 24 01/23/2024 LIPID PANEL LDL chol calc ([facility]) 104 mg/dL 0-99 above high normal Not Available [facility] ([facility]) [address] [place], [address], 01/23/2024 03:37:08 01/22/20 24 01/23/2024 HEPAT IC FUNCT ION PANEL (7) protein, total 6.8 g/dL 6.0-8. 5 Not Available [facility] ([facility]) [address] [facility] [place], [address], 01/23/2024 03:37:09 01/22/20 24 01/23/2024 HEPAT IC FUNCT ION PANEL (7) albumin 3.8 g/dL 3.9-4. 9 below low normal Not Available [facility] ([facility]) [address] [facility] [place], [address], 01/23/2024 03:37:09 01/22/20 24 01/23/2024 HEPAT IC FUNCT ION PANEL (7) bilirubin, total 0.5 mg/dL 0.0-1. 2 Not Available [facility] ([facility]) [address] [place], [address], 01/23/2024 03:37:09 01/22/20 24 01/23/2024 HEPAT IC FUNCT ION PANEL (7) bilirubin, direct 0.15 mg/dL 0.00-0 .40 Not Available [facility] ([facility]) [address] [place], [address], 01/23/2024 03:37:09 01/22/20 24 01/23/2024 HEPAT IC FUNCT ION PANEL (7) alkaline phosphatase 115 IU/L 44-121 Not Available [facility]) [address] [place], [address], 01/23/2024 03:37:09 01/22/20 24 01/23/2024 HEPAT IC FUNCT ION PANEL (7) AST (SGOT) 27 IU/L 0-40 Not Available [facility] ([facility]) [address] [place], [address], 01/23/2024 03:37:09 01/22/20 24 01/23/2024 HEPAT IC FUNCT ION PANEL (7) ALT (SGPT) 28 IU/L 0-44 Not Available [facility] ([facility]) [address] [facility] [place], [address], 01/23/2024 03:37:09 01/22/20 24 01/23/2024 BMP7+ EGFR glucose 108 mg/dL 70-99 above high normal Not Available [facility] ([facility]) [address] [facility], [place], [address], 01/23/2024 03:37:10 01/22/20 24 01/23/2024 BMP7+ EGFR BUN 8 mg/dL 8-27 Not Available [facility] ([facility]) [address] [place], [address], 01/23/2024 03:37:10 01/22/20 24 01/23/2024 BMP7+ EGFR creatinine 0.73 mg/dL 0.76-1 .27 below low normal Not Available [facility] ([facility]) [address] [place], [address], 01/23/2024 03:37:10 01/22/20 24 01/23/2024 BMP7+ EGFR eGFR 98 mL/mi n/1.7 3 >59 Not Available [facility] ([facility]) [address] [place], [address], 01/23/2024 03:37:10 01/22/20 24 01/23/2024 BMP7+ EGFR sodium 130 mmol/ L 134-14 4 below low normal Not Available [facility] ([facility]) [address] [place], [address], 01/23/2024 03:37:10 01/22/20 24 01/23/2024 BMP7+ EGFR potassium 4.8 mmol/ L 3.5-5. 2 Not Available [facility] ([facility]) [address] [place], [address], 01/23/2024 03:37:10 01/22/20 24 01/23/2024 BMP7+ EGFR chloride 97 mmol/ L 96-106 Not Available [facility] ([facility]) [address] [facility], [place], [address], 01/23/2024 03:37:10 01/22/20 24 01/23/2024 BMP7+ EGFR carbon dioxide, total 21 mmol/ L 20-29 Not Available [facility] ([facility]) [address] [facility], [place], [address], 01/23/2024 03:37:10 01/22/20 24 01/23/2024 HEMOG LOBIN A1C hemoglobin A1C 5.9 % 4.8-5. 6 above high normal Predi abete s: 5.7 - 6.4 Diabe meredith: >6.4 Glyce khoa contr ol for adult s with diabe meredith: <7.0 Not Available [facility] ([facility]) [address] [facility], [place], [address], 01/23/2024 03:37:11 01/22/20 24 01/23/2024 CBC WITH DIFFE RENTI AL/PL ATELE T WBC 3.7 x10e3 /uL 3.4-10 .8 Not Available [facility] ([facility]) [address] [place], [address], 01/23/2024 03:37:12 01/22/20 24 01/23/2024 CBC WITH DIFFE RENTI AL/PL ATELE T RBC 4.99 x10e6 /uL 4.14-5 .80 Not Available [facility] ([facility]) [address] [place], [address], 01/23/2024 03:37:12 01/22/20 24 01/23/2024 CBC WITH DIFFE RENTI AL/PL ATELE T hemoglobin 16.0 g/dL 13.0-1 7.7 Not Available [facility] ([facility]) [address] [place], [address], 01/23/2024 03:37:12 01/22/20 24 01/23/2024 CBC WITH DIFFE RENTI AL/PL ATELE T hematocrit 48.7 % 37.5-5 1.0 Not Available [facility] ([facility]) [address] [facility], [place], [address], 01/23/2024 03:37:12 01/22/20 24 01/23/2024 CBC WITH DIFFE RENTI AL/PL ATELE T MCV 98 fL 79-97 above high normal Not Available [facility] ([facility]) [address] [facility], [place], [address], 01/23/2024 03:37:12 01/22/20 24 01/23/2024 CBC WITH DIFFE RENTI AL/PL ATELE T MCH 32.1 pg 26.6-3 3.0 Not Available [facility] ([facility]) [address] [facility], [place], [address], 01/23/2024 03:37:12 01/22/20 24 01/23/2024 CBC WITH DIFFE RENTI AL/PL ATELE T MCHC 32.9 g/dL 31.5-3 5.7 Not Available [facility] ([facility]) [address] [facility], [place], [address], 01/23/2024 03:37:12 01/22/20 24 01/23/2024 CBC WITH DIFFE RENTI AL/PL ATELE T RDW 15.7 % 11.6-1 5.4 above high normal Not Available [facility] ([facility]) [address] [place], [address], 01/23/2024 03:37:12 01/22/20 24 01/23/2024 CBC WITH DIFFE RENTI AL/PL ATELE T platelets 191 x10e3 /uL 150-45 0 Not Available [facility] ([facility]) [address] [facility], [place], [address], 01/23/2024 03:37:12 01/22/20 24 01/23/2024 CBC WITH DIFFE RENTI AL/PL ATELE T neutrophils 46 % notest ab. Not Available [facility] ([facility]) [address] [facility], [place], [address], 01/23/2024 03:37:12 01/22/20 24 01/23/2024 CBC WITH DIFFE RENTI AL/PL ATELE T lymphs 33 % notest ab. Not Available [facility] ([facility]) [address] [facility], [place], [address], 01/23/2024 03:37:12 01/22/20 24 01/23/2024 CBC WITH DIFFE RENTI AL/PL ATELE T monocytes 18 % notest ab. Not Available [facility] ([facility]) [address] [facility], [place], [address], 01/23/2024 03:37:12 01/22/20 24 01/23/2024 CBC WITH DIFFE RENTI AL/PL ATELE T eos 2 % notest ab. Not Available [facility] ([facility]) [address] [place], [address], 01/23/2024 03:37:12 01/22/20 24 01/23/2024 CBC WITH DIFFE RENTI AL/PL ATELE T basos 1 % notest ab. Not Available [facility] ([facility]) [address] [facility], [place], [address], 01/23/2024 03:37:12 01/22/20 24 01/23/2024 CBC WITH DIFFE RENTI AL/PL ATELE T neutrophils (absolute) 1.7 x10e3 /uL 1.4-7. 0 Not Available [facility] ([facility]) [address] [facility], [place], [address], 01/23/2024 03:37:12 01/22/20 24 01/23/2024 CBC WITH DIFFE RENTI AL/PL ATELE T lymphs (absolute) 1.2 x10e3 /uL 0.7-3. 1 Not Available [facility] ([facility]) [address] [facility], [place], [address], 01/23/2024 03:37:12 01/22/20 24 01/23/2024 CBC WITH DIFFE RENTI AL/PL ATELE T monocytes(ab solute) 0.7 x10e3 /uL 0.1-0. 9 Not Available [facility] ([facility]) [address] [facility], [place], [address], 01/23/2024 03:37:12 01/22/20 24 01/23/2024 CBC WITH DIFFE RENTI AL/PL ATELE T eos (absolute) 0.1 x10e3 /uL 0.0-0. 4 Not Available [facility] ([facility]) [address] [facility], [place], [address], 01/23/2024 03:37:12 01/22/20 24 01/23/2024 CBC WITH DIFFE RENTI AL/PL ATELE T baso (absolute) 0.0 x10e3 /uL 0.0-0. 2 Not Available [facility] ([facility]) [address] [facility], [place], [address], 01/23/2024 03:37:12 01/22/20 24 01/23/2024 CBC WITH DIFFE RENTI AL/PL ATELE T immature granulocytes 0 % notest ab. Not Available [facility] ([facility]) [address] [facility], [place], [address], 01/23/2024 03:37:12 01/22/20 24 01/23/2024 CBC WITH DIFFE RENTI AL/PL ATELE T immature grans (abs) 0.0 x10e3 /uL 0.0-0. 1 Not Available [facility] ([facility]) [address] [facility], [place], [address], 01/23/2024 03:37:12 08/06/20 24 08/07/2024 TESTO STERO NE,FR EE AND TOTAL testosterone 746 NG/dL 264-91 6 Adult male refer ence inter cornelia is based on a popul ation of healt hy nonob kamini males (BMI <30) betwe en 19 and 39 years old. Michelle haddad et.al . JCEM 2017, 102;1 161-1 173. PMID: 36369 103. Not Available [facility] ([facility]) [address] [place], [address], 08/08/2024 20:09:44 08/06/20 24 08/08/2024 TESTO STERO NE,FR EE AND TOTAL free testosterone (direct) 3.1 pg/mL 6.6-18 .1 below low normal Not Available [facility] ([facility]) [address] [place], [address], 08/08/2024 20:09:44 08/06/20 24 08/07/2024 LIPID PANEL W/ CHOL/ HDL RATIO cholesterol, total 199 mg/dL 100-19 9 Not Available [facility] ([facility]) [address] [place], [address], 08/08/2024 20:09:45 08/06/20 24 08/07/2024 LIPID PANEL W/ CHOL/ HDL RATIO triglyceride s 58 mg/dL 0-149 Not Available [facility]) [address] [place], [address], 08/08/2024 20:09:45 08/06/20 24 08/07/2024 LIPID PANEL W/ CHOL/ HDL RATIO HDL cholesterol 72 mg/dL >39 Not Available [facility]) [address] [place], [address], 08/08/2024 20:09:45 08/06/20 24 08/07/2024 LIPID PANEL W/ CHOL/ HDL RATIO VLDL cholesterol michelle 11 mg/dL 5-40 Not Available [facility]) [address] [place], [address], 08/08/2024 20:09:45 08/06/20 24 08/07/2024 LIPID PANEL W/ CHOL/ HDL RATIO LDL chol calc ([facility]) 116 mg/dL 0-99 above high normal Not Available [facility] ([facility]) [address] [place], [address], 08/08/2024 20:09:45 08/06/20 24 08/07/2024 LIPID PANEL W/ CHOL/ HDL RATIO T. chol/HDL ratio 2.8 ratio 0.0-5. 0 T. Chol/ HDL Ratio Men Women 1/2 Avg.R isk 3.4 3.3 Avg.R isk 5.0 4.4 2X Avg.R isk 9.6 7.1 3X Avg.R isk 23.4 11.0 Not Available [facility] ([facility]) [address] [place], [address], 08/08/2024 20:09:45 08/06/20 24 08/07/2024 TSH+F REE T4 TSH 0.511 uIU/m L 0.450- 4.500 Not Available [facility] ([facility]) [address] [place], [address], 08/08/2024 20:09:47 08/06/20 24 08/07/2024 TSH+F REE T4 T4,free(dire ct) 1.49 NG/dL 0.82-1 .77 Not Available [facility] ([facility]) [address] [place], [address], 08/08/2024 20:09:47 08/06/20 24 08/07/2024 HEPAT IC FUNCT ION PANEL (7) protein, total 7.3 g/dL 6.0-8. 5 Not Available [facility] ([facility]) [address] [place], [address], 08/08/2024 20:09:48 08/06/20 24 08/07/2024 HEPAT IC FUNCT ION PANEL (7) albumin 3.9 g/dL 3.9-4. 9 Not Available [facility] ([facility]) [address] [facility] [place], [address], 08/08/2024 20:09:48 08/06/20 24 08/07/2024 HEPAT IC FUNCT ION PANEL (7) bilirubin, total 0.5 mg/dL 0.0-1. 2 Not Available [facility] ([facility]) [address] [facility] [place], [address], 08/08/2024 20:09:48 08/06/20 24 08/07/2024 HEPAT IC FUNCT ION PANEL (7) bilirubin, direct 0.18 mg/dL 0.00-0 .40 Not Available [facility] ([facility]) [address] [facility] [place], [address], 08/08/2024 20:09:48 08/06/20 24 08/07/2024 HEPAT IC FUNCT ION PANEL (7) alkaline phosphatase 128 IU/L 44-121 above high normal Not Available [facility] ([facility]) [address] [facility] [place], [address], 08/08/2024 20:09:48 08/06/20 24 08/07/2024 HEPAT IC FUNCT ION PANEL (7) AST (SGOT) 30 IU/L 0-40 Not Available [facility] ([facility]) [address] [facility] [place], [address], 08/08/2024 20:09:48 08/06/20 24 08/07/2024 HEPAT IC FUNCT ION PANEL (7) ALT (SGPT) 29 IU/L 0-44 Not Available [facility] ([facility]) [address] [place], [address], 08/08/2024 20:09:48 08/06/20 24 08/07/2024 BMP7+ EGFR glucose 89 mg/dL 70-99 Not Available [facility] ([facility]) [address] [facility] [place], [address], 08/08/2024 20:09:49 08/06/20 24 08/07/2024 BMP7+ EGFR BUN 8 mg/dL 8-27 Not Available [facility] ([facility]) [address] [facility] [place], [address], 08/08/2024 20:09:49 08/06/20 24 08/07/2024 BMP7+ EGFR creatinine 0.77 mg/dL 0.76-1 .27 Not Available [facility] ([facility]) [address] [facility] [place], [address], 08/08/2024 20:09:49 08/06/20 24 08/07/2024 BMP7+ EGFR eGFR 96 mL/mi n/1.7 3 >59 Not Available [facility] ([facility]) [address] [facility] [place], [address], 08/08/2024 20:09:49 08/06/20 24 08/07/2024 BMP7+ EGFR sodium 131 mmol/ L 134-14 4 below low normal Not Available [facility] ([facility]) [address] [facility] [place], [address], 08/08/2024 20:09:49 08/06/20 24 08/07/2024 BMP7+ EGFR potassium 4.5 mmol/ L 3.5-5. 2 Not Available [facility] ([facility]) [address] [facility] [place], [address], 08/08/2024 20:09:49 08/06/20 24 08/07/2024 BMP7+ EGFR chloride 93 mmol/ L 96-106 below low normal Not Available [facility] ([facility]) [address] [facility] [place], [address], 08/08/2024 20:09:49 08/06/20 24 08/07/2024 BMP7+ EGFR carbon dioxide, total 24 mmol/ L 20-29 Not Available [facility] ([facility]) [address] [facility], [place], [address], 08/08/2024 20:09:49 08/06/20 24 08/07/2024 HEMOG LOBIN A1C hemoglobin A1C 6.0 % 4.8-5. 6 above high normal Predi abete s: 5.7 - 6.4 Diabe meredith: >6.4 Glyce khoa contr ol for adult s with diabe meredith: <7.0 Not Available [facility] ([facility]) [address] [facility], [place], [address], 08/08/2024 20:09:50 08/06/20 24 08/07/2024 CBC WITH DIFFE RENTI AL/PL ATELE T WBC 3.7 x10e3 /uL 3.4-10 .8 Not Available [facility] ([facility]) [address] [facility], [place], [address], 08/08/2024 20:09:51 08/06/20 24 08/07/2024 CBC WITH DIFFE RENTI AL/PL ATELE T RBC 5.08 x10e6 /uL 4.14-5 .80 Ovalo cytes prese nt. Not Available [facility] ([facility]) [address] [facility], [place], [address], 08/08/2024 20:09:51 08/06/20 24 08/07/2024 CBC WITH DIFFE RENTI AL/PL ATELE T hemoglobin 17.5 g/dL 13.0-1 7.7 Not Available [facility] ([facility]) [address] [place], [address], 08/08/2024 20:09:51 08/06/20 24 08/07/2024 CBC WITH DIFFE RENTI AL/PL ATELE T hematocrit 50.5 % 37.5-5 1.0 Not Available [facility] ([facility]) [address] [facility], [place], [address], 08/08/2024 20:09:51 08/06/20 24 08/07/2024 CBC WITH DIFFE RENTI AL/PL ATELE T MCV 99 fL 79-97 above high normal Not Available [facility] ([facility]) [address] [facility], [place], [address], 08/08/2024 20:09:51 08/06/20 24 08/07/2024 CBC WITH DIFFE RENTI AL/PL ATELE T MCH 34.4 pg 26.6-3 3.0 above high normal Not Available [facility] ([facility]) [address] [facility], [place], [address], 08/08/2024 20:09:51 08/06/20 24 08/07/2024 CBC WITH DIFFE RENTI AL/PL ATELE T MCHC 34.7 g/dL 31.5-3 5.7 Not Available [facility] ([facility]) [address] [facility], [place], [address], 08/08/2024 20:09:51 08/06/20 24 08/07/2024 CBC WITH DIFFE RENTI AL/PL ATELE T RDW 15.1 % 11.6-1 5.4 Not Available [facility] ([facility]) [address] [facility], [place], [address], 08/08/2024 20:09:51 08/06/20 24 08/07/2024 CBC WITH DIFFE RENTI AL/PL ATELE T platelets 174 x10e3 /uL 150-45 0 Not Available [facility] ([facility]) [address] [facility], [place], [address], 08/08/2024 20:09:51 08/06/20 24 08/07/2024 CBC WITH DIFFE RENTI AL/PL ATELE T neutrophils 49 % notest ab. Not Available [facility] ([facility]) [address] [facility], [place], [address], 08/08/2024 20:09:51 08/06/20 24 08/07/2024 CBC WITH DIFFE RENTI AL/PL ATELE T lymphs 26 % notest ab. Not Available [facility] ([facility]) [address] [facility], [place], [address], 08/08/2024 20:09:51 08/06/20 24 08/07/2024 CBC WITH DIFFE RENTI AL/PL ATELE T monocytes 22 % notest ab. Not Available [facility] ([facility]) [address] [facility], [place], [address], 08/08/2024 20:09:51 08/06/20 24 08/07/2024 CBC WITH DIFFE RENTI AL/PL ATELE T eos 2 % notest ab. Not Available [facility] ([facility]) [address] [facility], [place], [address], 08/08/2024 20:09:51 08/06/20 24 08/07/2024 CBC WITH DIFFE RENTI AL/PL ATELE T basos 1 % notest ab. Not Available [facility] ([facility]) [address] [place], [address], 08/08/2024 20:09:51 08/06/20 24 08/07/2024 CBC WITH DIFFE RENTI AL/PL ATELE T neutrophils (absolute) 1.8 x10e3 /uL 1.4-7. 0 Not Available [facility] ([facility]) [address] [facility], [place], [address], 08/08/2024 20:09:51 08/06/20 24 08/07/2024 CBC WITH DIFFE RENTI AL/PL ATELE T lymphs (absolute) 1.0 x10e3 /uL 0.7-3. 1 Not Available [facility] ([facility]) [address] [place], [address], 08/08/2024 20:09:51 08/06/20 24 08/07/2024 CBC WITH DIFFE RENTI AL/PL ATELE T monocytes(ab solute) 0.8 x10e3 /uL 0.1-0. 9 Not Available [facility] ([facility]) [address] [facility], [place], [address], 08/08/2024 20:09:51 08/06/20 24 08/07/2024 CBC WITH DIFFE RENTI AL/PL ATELE T eos (absolute) 0.1 x10e3 /uL 0.0-0. 4 Not Available [facility] ([facility]) [address] [facility], [place], [address], 08/08/2024 20:09:51 08/06/20 24 08/07/2024 CBC WITH DIFFE RENTI AL/PL ATELE T baso (absolute) 0.0 x10e3 /uL 0.0-0. 2 Not Available [facility] ([facility]) [address] [facility], [place], [address], 08/08/2024 20:09:51 08/06/20 24 08/07/2024 CBC WITH DIFFE RENTI AL/PL ATELE T immature granulocytes 0 % notest ab. Not Available [facility] ([facility]) [address] [facility], [place], [address], 08/08/2024 20:09:51 08/06/20 24 08/07/2024 CBC WITH DIFFE RENTI AL/PL ATELE T immature grans (abs) 0.0 x10e3 /uL 0.0-0. 1 Not Available [facility] ([facility]) [address] [facility], [place], [address], 08/08/2024 20:09:51 08/06/20 24 08/07/2024 CBC WITH DIFFE RENTI AL/PL ATELE T hematology comments: NOTE: Verif ied by micro scopi c exami natio n. Not Available [facility] ([facility]) [address] [facility], [place], [address], 08/08/2024 20:09:51 08/06/20 24 08/07/2024 PROST ATE-S PECIF IC AG prostate specific Ag 0.4 NG/mL 0.0-4. 0 Ashlyn ECLIA metho dolog y. Accor ding to the Ameri can [employer] g[employer] iatio n, Serum PSA shoul d decre ase and remai n at undet ectab le level s after radic al prost atect summer. The AUA defin es bioch emica l recur rence as an initi al PSA value 0.2 ng/mL or great er follo wed by a subse quent confi rmato ry PSA value 0.2 ng/mL or great er. Value s obtai cristina with diffe rent assay metho ds or kits canno t be used inter hair karina . Resul ts canno t be inter prete d as absol angel evide nce of the prese nce or absen ce of [facility] jarek singh se. Not Available [facility] ([facility]) [address] [facility], [place], [address], 08/08/2024 20:09:52 01/06/20 25 01/06/2025 TESTO STERO NE,FR EE AND TOTAL testosterone 698 NG/dL 264-91 6 Adult male refer ence inter cornelia is based on a popul ation of healt hy nonob kamini males (BMI <30) betwe en 19 and 39 years old. Michelle haddad et.al . JCEM 2017, 102;1 161-1 173. PMID: 66225 103. Not Available [facility] ([facility]) [address] [facility], [place], [address], 01/07/2025 15:11:43 01/06/20 25 01/07/2025 TESTO STERO NE,FR EE AND TOTAL free testosterone (direct) 3.1 pg/mL 6.6-18 .1 below low normal Not Available [facility] ([facility]) [address] [place], [address], 01/07/2025 15:11:43 01/06/20 25 01/06/2025 TSH+F REE T4 TSH 0.561 uIU/m L 0.450- 4.500 Not Available [facility] ([facility]) [address] [place], [address], 01/07/2025 15:11:44 01/06/20 25 01/06/2025 TSH+F REE T4 T4,free(dire ct) 1.26 NG/dL 0.82-1 .77 Not Available [facility] ([facility]) [address] [place], [address], 01/07/2025 15:11:44 01/06/20 25 01/06/2025 LIPID PANEL cholesterol, total 179 mg/dL 100-19 9 Not Available [facility] ([facility]) [address] [place], [address], 01/07/2025 15:11:45 01/06/20 25 01/06/2025 LIPID PANEL triglyceride s 60 mg/dL 0-149 Not Available [facility] [address] [place], [address], 01/07/2025 15:11:45 01/06/20 25 01/06/2025 LIPID PANEL HDL cholesterol 80 mg/dL >39 Not Available [facility] [address] [place], [address], 01/07/2025 15:11:45 01/06/20 25 01/06/2025 LIPID PANEL VLDL cholesterol michelle 12 mg/dL 5-40 Not Available [facility] [address] [place], [address], 01/07/2025 15:11:45 01/06/20 25 01/06/2025 LIPID PANEL LDL chol calc ([facility]) 87 mg/dL 0-99 Not Available [facility] [address] [place], [address], 01/07/2025 15:11:45 01/06/20 25 01/06/2025 HEPAT IC FUNCT ION PANEL (7) protein, total 7.3 g/dL 6.0-8. 5 Not Available [facility] ([facility]) [address] [place], [address], 01/07/2025 15:11:45 01/06/20 25 01/06/2025 HEPAT IC FUNCT ION PANEL (7) albumin 4.0 g/dL 3.9-4. 9 Not Available [facility] ([facility]) [address] [facility], [place], [address], 01/07/2025 15:11:45 01/06/20 25 01/06/2025 HEPAT IC FUNCT ION PANEL (7) bilirubin, total 0.7 mg/dL 0.0-1. 2 Not Available [facility] ([facility]) [address] [place], [address], 01/07/2025 15:11:45 01/06/20 25 01/06/2025 HEPAT IC FUNCT ION PANEL (7) bilirubin, direct 0.22 mg/dL 0.00-0 .40 Not Available [facility] ([facility]) [address] [place], [address], 01/07/2025 15:11:45 01/06/20 25 01/06/2025 HEPAT IC FUNCT ION PANEL (7) alkaline phosphatase 129 IU/L 44-121 above high normal Not Available [facility] ([facility]) [address] [place], [address], 01/07/2025 15:11:45 01/06/20 25 01/06/2025 HEPAT IC FUNCT ION PANEL (7) AST (SGOT) 34 IU/L 0-40 Not Available [facility] ([facility] [address] [facility] [place], [address], 01/07/2025 15:11:45 01/06/20 25 01/06/2025 HEPAT IC FUNCT ION PANEL (7) ALT (SGPT) 37 IU/L 0-44 Not Available [facility] [address] [facility] [place], [address], 01/07/2025 15:11:45 01/06/20 25 01/06/2025 BMP7+ EGFR glucose 89 mg/dL 70-99 Not Available [facility] [address] [facility] [place], [address], 01/07/2025 15:11:46 01/06/20 25 01/06/2025 BMP7+ EGFR BUN 10 mg/dL 8-27 Not Available [facility] ([facility]) [address] [place], [address], 01/07/2025 15:11:46 01/06/20 25 01/06/2025 BMP7+ EGFR creatinine 0.80 mg/dL 0.76-1 .27 Not Available [facility] ([facility] [address] [place], [address], 01/07/2025 15:11:46 01/06/20 25 01/06/2025 BMP7+ EGFR eGFR 95 mL/mi n/1.7 3 >59 Not Available [facility] ([facility]) [address] [place], [address], 01/07/2025 15:11:46 01/06/20 25 01/06/2025 BMP7+ EGFR sodium 132 mmol/ L 134-14 4 below low normal Not Available [facility] ([facility]) [address] [place], [address], 01/07/2025 15:11:46 01/06/20 25 01/06/2025 BMP7+ EGFR potassium 4.9 mmol/ L 3.5-5. 2 Not Available [facility] ([facility]) [address] [place], [address], 01/07/2025 15:11:46 01/06/20 25 01/06/2025 BMP7+ EGFR chloride 97 mmol/ L 96-106 Not Available [facility]) [address] [facility], [place], [address], 01/07/2025 15:11:46 01/06/20 25 01/06/2025 BMP7+ EGFR carbon dioxide, total 25 mmol/ L 20-29 Not Available [facility] ([facility]) [address] [facility], [place], [address], 01/07/2025 15:11:46 01/06/2001/05/2025 AMBIG ABBRE V LP DEFAU LT ambig abbrev LP default Commen t A hand- writt en panel /prof ile was recei delta from your offic e. In accor dance with the [facility] Ambig uous Test Code Polic y dated March 2003, we have compl eted your order by [facility] recog nized AMA panel . We have assarabella evans Lipid Panel , Test Code #[address]. If this is not the testi ng you wishe d to recei ve on this speci men, pleas e conta ct the [facility] Clien t Inqui ry/Te chnic al Servi mitch Depar tment to yuridia fy the test order . We appre ciate your busin ess. Not Available [facility] ([facility]) [address] [facility], [place], [address], 01/07/2025 15:11:46 01/06/2001/05/2025 AMBIG ABBRE V HFP7 DEFAU LT ambig abbrev hfp7 default Commen t A hand- writt en panel /prof ile was recei delta from your offic e. In accor dance with the [facility] Mary dean Test Code Polic y dated March 2003, we have compl eted your order by using the close st curre ntly or forme rly recog nized AMA panel . We have assarabella evans Hepat ic Funct ion Panel (7), Test Code #[address]. If this is not the testi ng you wishe d to recei ve on this speci men, pleas e conta ct the [facility] Clien t Inqui ry/Te chnic al Servi mitch Depar tment to yuridia fy the test order . We appre ciate your busin ess. Not Available [facility] ([facility]) [address] [place], [address], 01/07/2025 15:11:47 01/06/20 25 01/06/2025 HEMOG LOBIN A1C hemoglobin A1C 6.0 % 4.8-5. 6 above high normal Predi abete s: 5.7 - 6.4 Diabe meredith: >6.4 Glyce khoa contr ol for adult s with diabe meredith: <7.0 Not Available [facility] ([facility]) [address] [place], [address], 01/07/2025 15:11:48 01/06/20 25 01/05/2025 CBC WITH DIFFE RENTI AL/PL ATELE T WBC 3.9 x10e3 /uL 3.4-10 .8 Not Available [facility] ([facility]) [address] [place], [address], 01/07/2025 15:11:48 01/06/20 25 01/05/2025 CBC WITH DIFFE RENTI AL/PL ATELE T RBC 5.38 x10e6 /uL 4.14-5 .80 Not Available [facility] ([facility]) [address] [place], [address], 01/07/2025 15:11:48 01/06/20 25 01/05/2025 CBC WITH DIFFE RENTI AL/PL ATELE T hemoglobin 18.0 g/dL 13.0-1 7.7 above high normal Not Available [facility] ([facility]) [address] [place], [address], 01/07/2025 15:11:48 01/06/20 25 01/05/2025 CBC WITH DIFFE RENTI AL/PL ATELE T hematocrit 53.9 % 37.5-5 1.0 above high normal Not Available [facility] ([facility]) [address] [place], [address], 01/07/2025 15:11:48 01/06/20 25 01/05/2025 CBC WITH DIFFE RENTI AL/PL ATELE T MCV 100 fL 79-97 above high normal Not Available [facility] ([facility]) [address] [place], [address], 01/07/2025 15:11:48 01/06/20 25 01/05/2025 CBC WITH DIFFE RENTI AL/PL ATELE T MCH 33.5 pg 26.6-3 3.0 above high normal Not Available [facility] ([facility]) [address] [place], [address], 01/07/2025 15:11:48 01/06/20 25 01/05/2025 CBC WITH DIFFE RENTI AL/PL ATELE T MCHC 33.4 g/dL 31.5-3 5.7 Not Available [facility] ([facility]) [address] [place], [address], 01/07/2025 15:11:48 01/06/20 25 01/05/2025 CBC WITH DIFFE RENTI AL/PL ATELE T RDW 14.5 % 11.6-1 5.4 Not Available [facility] ([facility]) [address] [place], [address], 01/07/2025 15:11:48 01/06/20 25 01/05/2025 CBC WITH DIFFE RENTI AL/PL ATELE T platelets 164 x10e3 /uL 150-45 0 Not Available [facility] ([facility]) [address] [place], [address], 01/07/2025 15:11:48 01/06/20 25 01/05/2025 CBC WITH DIFFE RENTI AL/PL ATELE T neutrophils 51 % notest ab. Not Available [facility]) [address] [facility], [place], [address], 01/07/2025 15:11:48 01/06/20 25 01/05/2025 CBC WITH DIFFE RENTI AL/PL ATELE T lymphs 27 % notest ab. Not Available [facility]) [address] [facility], [place], [address], 01/07/2025 15:11:48 01/06/20 25 01/05/2025 CBC WITH DIFFE RENTI AL/PL ATELE T monocytes 19 % notest ab. Not Available [facility] ([facility]) [address] [place], [address], 01/07/2025 15:11:48 01/06/20 25 01/05/2025 CBC WITH DIFFE RENTI AL/PL ATELE T eos 2 % notest ab. Not Available [facility] ([facility]) [address] [facility], [place], [address], 01/07/2025 15:11:48 01/06/20 25 01/05/2025 CBC WITH DIFFE RENTI AL/PL ATELE T basos 1 % notest ab. Not Available [facility] ([facility]) [address] [facility], [place], [address], 01/07/2025 15:11:48 01/06/20 25 01/05/2025 CBC WITH DIFFE RENTI AL/PL ATELE T neutrophils (absolute) 2.0 x10e3 /uL 1.4-7. 0 Not Available [facility] ([facility]) [address] [facility], [place], [address], 01/07/2025 15:11:48 01/06/20 25 01/05/2025 CBC WITH DIFFE RENTI AL/PL ATELE T lymphs (absolute) 1.1 x10e3 /uL 0.7-3. 1 Not Available [facility] ([facility] [address] [facility], [place], [address], 01/07/2025 15:11:48 01/06/20 25 01/05/2025 CBC WITH DIFFE RENTI AL/PL ATELE T monocytes(ab solute) 0.7 x10e3 /uL 0.1-0. 9 Not Available [facility] ([facility]) [address] [facility], [place], [address], 01/07/2025 15:11:48 01/06/20 25 01/05/2025 CBC WITH DIFFE RENTI AL/PL ATELE T eos (absolute) 0.1 x10e3 /uL 0.0-0. 4 Not Available [facility] ([facility] [address] [facility], [place], [address], 01/07/2025 15:11:48 01/06/20 25 01/05/2025 CBC WITH DIFFE RENTI AL/PL ATELE T baso (absolute) 0.0 x10e3 /uL 0.0-0. 2 Not Available [facility] ([facility] [address] [facility], [place], [address], 01/07/2025 15:11:48 01/06/20 25 01/05/2025 CBC WITH DIFFE RENTI AL/PL ATELE T immature granulocytes 0 % notest ab. Not Available [facility] [address] [facility], [place], [address], 01/07/2025 15:11:48 01/06/20 25 01/05/2025 CBC WITH DIFFE RENTI AL/PL ATELE T immature grans (abs) 0.0 x10e3 /uL 0.0-0. 1 Not Available [facility] ([facility] [address] [facility], [place], [address], 01/07/2025 15:11:48 03/11/20 24 03/10/2024 LDCT, chest , for lung cance r scree molly No observ ation record ed. [address] [facility], [place], [address], 03/17/2024 17:41:33 04/28/20 24 04/28/2024 juvenal can cardi olite stres s test (PROC ) No observ ation record ed. [facility] [address] [place] [address], [phone], 05/07/2024 09:11:33 05/09/20 24 04/28/2024 juvenal can cardi olite stres s test (PROC ) No observ ation record ed. [facility] ([facility]) [address] [place], [place] [address] [address] [place] [address], [phone], 05/09/2024 08:57:09 02/12/20 25 02/11/2025 XR, hand, 2 view No observ ation record ed. [email or web address] [place] [address], [address], 02/21/2025 22:07:20 Result Notes None recorded. Problems Name Problem SNOMED Code Status Onset Date Resolution Date Notes Provider Name and Address Organization Details Recorded Time Obesity 985637214 Active 2023 ROBERT Tucker Attn: Mary carvajal,[address] [place], [address], [facility] 23:05:49 Body mass index 30+ - obesity 435423364 Active 2023 ROBERT Tucker Attn: Mary carvajal,[address] [place], [address], [place] [facility] 4 23:05:49 Blood glucose outside reference range 983112944 Active 2023 ROBERT Tucker Attn: Mary carvajal,[address] [place], [address], [place] [facility] 4 23:05:58 Screening for malignant neoplasm of prostate Active 2023 ROBERT Tucker Attn: Mary carvajal,[address] [place], [address], [place] [facility] 4 23:06:00 Long-term drug therapy Active 2023 ROBERT Tucker Attn: Mary carvajal,[address] [place], [address], [place] [facility] 4 23:06:09 Asthma 411170820 Active 2023 ROBERT Tucker Attn: Mary carvajal,[address] [place], [address], [place] [facility] 4 23:06:13 Chronic obstructive pulmonary disease 28543158 Active 2023 ROBERT Tucker Attn: Mary carvajal,[address] [place], [address], [place] [facility] 4 23:06:14 Ex-smoker 8277871 Active 2023 ROBERT Tucker Attn: Mary carvajal,[address] [place], [address], [place] [facility] 4 23:06:34 Dyspnea on exertion 68022993 Active 2023 ROBERT Tucker Attn: Mary carvajal,[address] [place], [address], [place] [facility] 4 23:06:35 Hypothyroid ism 21329361 Active 2023 ROBERT Tucker Attn: Mary carvajal,[address] [facility], [place], [address], [place] [facility] 4 23:07:06 Benign essential hypertensio n 9706859 Active 2023 ROBERT Tucker Attn: Mary carvajal,[address] [facility], [place], [address], [place] [facility] 4 23:07:26 Hyperlipide lavinia 19476984 Active 2023 ROBERT Tucker Attn: Mary carvajal,[address] [facility], [place], [address], [place] [facility] 4 23:07:27 Male hypogonadis m 17885324 Active 2023 ROBERT Tucker Attn: Mary carvajal,[address] [place], [address], [place] [facility] 4 14:54:11 Edema of lower extremity 991811600 Active 2023 ROBERT Tucker Attn: Mary carvajal,[address] [facility], [place], [address], [place] [facility] 4 14:54:53 Obese class II 6027491439930 05 Active 2024 ROBERT Tucker Attn: Mary carvajal,[address] [place], [address], [place] [facility] 5 19:32:45 Problem Notes None recorded. Procedures Surgical History Date Name Laterality Status Provider Name and Address Organization Details Recorded Time Carpal tunnel surgery completed Marcy Thorpe MA [facility] 01/21/2024 10:11:49 hernia repair completed Marcy Thorpe MA [facility] 01/21/2024 10:20:13 Imaging Results None recorded. Procedure Notes None recorded. Medical Equipment None Reported. Allergies No known drug allergies Medications Name Sig Start Date Stop Date Status Note LastModified by Organization Details LastModified Time verapamil ER (SR) 120 mg tablet,exte nded release TAKE 1 TABLET BY MOUTH ONCE DAILY 01/20 completed Not Available Not Available Not Available BD Luer-Cullen Syringe 3 mL 23 x 1 USE DIRECTED USE ONE SYRINGE EVERY 3 WEEKS active Not Available Not Available No t Available levothyroxi ne 175 mcg tablet TAKE 1 TABLET BY MOUTH ONCE DAILY active Not Available Not Available No t Available sildenafil 100 mg tablet TAKE ONE TABLET BY MOUTH APPROXIMA TELY ONE HOUR BEFORE SEXUAL ACTIVITY. DO NOT USE MORE THAN ONE DOSE DAILY active Not Available Not Available No t Available triamcinolo ne acetonide 0.1 % topical cream APPLY CREAM EXTERNALL Y 1 TO 2 TIMES DAILY UP TO FOR 2 WEEKS IN ROTATION WITH MUPIROCIN . AVOID FACE, AXILLA, AND GROIN active Not Available Not Available No t Available simvastatin 40 mg tablet TAKE 1 TABLET BY MOUTH ONCE DAILY active Not Available Not Available No t Available verapamil 120 mg tablet 11/20 completed Not Available Not Available Not Available simvastatin 20 mg tablet Take 1-1/2 tablets p.o. once daily 07/25 completed Not Available Not Available Not Available levothyroxi ne 200 mcg tablet TAKE 1 TABLET BY MOUTH ONCE DAILY 02/04 completed Not Available Not Available Not Available hydrochloro thiazide 25 mg tablet TAKE 1 TABLET BY MOUTH ONCE DAILY IN THE MORNING active Not Available Not Available No t Available testosteron e cypionate 200 mg/mL intramuscul ar oil INJECT 1 ML INTRAMUSC ULARLY EVERY 3 WEEKS DIRECTED active Not Available Not Available No t Available fluocinonid e 0.05 % topical cream APPLY CREAM EXTERNALL Y AFFECTED AREA ONCE DAILY TO TWICE DAILY FOR UP TO 2 WEEKS AVOID FACE, AXILLA, AND GROIN active Not Available Not Available No t Available losartan 100 mg tablet TAKE 1 TABLET BY MOUTH ONCE DAILY active Not Available Not Available No t Available verapamil ER 240 mg 24 hr capsule,ext ended release Take 2 capsules by mouth once daily 2024 active Not Available Not Available Not Avai lable amoxicillin 875 mg-potassiu m clavulanate 125 mg tablet Take 1 tablet every 12 hours by oral route. 07/21 completed Not Available Not Available Not Available niacin (inositol niacinate) 500 mg capsule Take by oral route. active Not Available Not Available No t Available Breo Ellipta 100 mcg-25 mcg/dose powder for inhalation Inhale 1 puff by mouth once daily 2024 active Not Available Not Available Not Avai lable Vitals Date Recorded Respiratory rate Systolic And Diastolic Provider Name and Address Organization Details Last Updated DateTime 01/21/2024 16 /min 140/60 mm[Hg] ROBERT Tucker Attn: Accounting, [place], [address], [facility] 01/21/2024 10:44:36 Date Recorded Body weight Body mass index (BMI) Body height Heart rate Oxygen saturation Oxygen saturation in Arterial blood by Pulse oximetry Systolic And Diastolic Provider Name and Address Organization Details Last Updated DateTime 4 248998. 16 g 37.5 kg/m2 172.72 cm 60 /min 94 % 94 % 130/62 mm[Hg] Marcy Thorpe MA [facility] 10:26:49 Date Recorded Systolic And Diastolic Provider Name and Address Organization Details Last Updated DateTime 01/20/2025 140/70 mm[Hg] ROBERT Tucker Attn: Accounting,[address] [place], [address], [facility] 01/20/2025 09:21:41 Date Recorded Body height Body mass index (BMI) Body weight Heart rate Respiratory rate Oxygen saturation Oxygen saturation in Arterial blood by Pulse oximetry Provider Name and Address Organization Details Last Updated DateTime 5 172.72 cm 39.4 kg/m2 983985. 42 g 60 /min 16 /min 7 % 7 % Jennifer Iniguez [facility] 5 09:02:54 Date Recorded Systolic And Diastolic Systolic And Diastolic Provider Name and Address Organization Details Last Updated DateTime 07/21/2024 150/70 mm[Hg] 140/70 mm[Hg] ROBERT Tucker Attn: Accounting, [place], [address], [facility] 07/21/2024 10:36:12 Date Recorded Body height Body mass index (BMI) Body weight Respiratory rate Oxygen saturation Oxygen saturation in Arterial blood by Pulse oximetry Heart rate Systolic And Diastolic Provider Name and Address Organization Details Last Updated DateTime 4 172.72 cm 38.8 kg/m2 635108. 05 g 16 /min 96 % 96 % 60 /min 138/72 mm[Hg] Farzana Latham [place] [facility] 10:23:59 Social History Question Answer Notes LastModified by Organizat ion Details LastModified Time Tobacco Smoking Status Former Smoker Marcy ANA MARIA Thorpe null, [place] [facility] 01/21/2024 10:08:48 Do You Have An Advance Directive? Yes Information n ot available 01/21/2024 How Many Years Have You Consumed Alcohol? 30 Information not available 01/21/2024 Are You Blind Or Do You Have Difficulty Seeing? Yes Glasses Information n ot available 01/21/2024 What Is Your Level Of Caffeine Consumption? None Information not available 01/21/2024 In The 14 Days Before Symptom Onset, Have You Had Close Contact With A Laboratory-confirm ed COVID-19 While That Case Was Ill? No Information n ot available 01/21/2024 In The 14 Days Before Symptom Onset, Have You Had Close Contact With A Person Who Is Under Investigation For COVID-19 While That Person Was Ill? No Information not available 01/21/2024 Have You Been To An Area Known To Be High Risk For COVID-19? No Information not available 01/21/2024 Are You Deaf Or Do You Have Serious Difficulty Hearing? No Information not available 01/21/2024 What Type Of Diet Are You Following? REGULAR Information n ot available 01/21/2024 Are There Any Guns Present In Your Home? Yes Information not available 01/21/2024 What Was The Date Of Your Most Recent Tobacco Screening? 01/20/2025 [email or web address] Information not available 01/20/2025 What Is Your Current Pack Years? 10packyears Information not available 01/21/2024 What Is Your Relationship Status? Information not available 01/21/2024 Do You Use Your Seat Belt Or Car Seat Routinely? Yes Information not available 01/21/2024 Do You Have Smoke And Carbon Monoxide Detectors In Your Home? Yes Information not available 01/21/2024 How Much Tobacco Do You Smoke? 0.5 PPD Information not available 01/21/2024 Do You Use Sunscreen Routinely? No Information not available 01/21/2024 Has Tobacco Cessation Counseling Been Provided? No Information not available 01/21/2024 How Many Years Have You Smoked Tobacco? 25 Information not available 01/21/2024 Sex: Male Functional Status Question Answer Note LastModified by Organizat ion Details LastModified Time Do you use any illicit or recreational drugs? No Information not available 01/21/2024 Do you or have you ever used any other forms of tobacco or nicotine? No Information not available 01/21/2024 What is your level of alcohol consumption? Occasional Information not available 01/21/2024 Are you currently employed? No Information not available 01/21/2024 Are you able to care for yourself? Yes Information n ot available 01/21/2024 What is your exercise level? None Information not available 01/21/2024 Mental Status Question Answer Note LastModified by Organization D etails LastModified Time Do you feel stressed (tense, restless, nervous, or anxious, or unable to sleep at night)? [id number] Information not available 01/21/2024 Family History Relationship Description Onset Age of this Age Resolved Age Notes LastModified by Organization Details LastModified Time Mother Heart disease [email or web address] Not available 2023 10:23:13 Father Neoplasm of lung [email or web address] Not available 2023 10:24:00 Medical History Condition Response Other Y High Blood Pressure Y Thyroid Problems Y COPD Y Asthma Y High Cholesterol Y Immunizations Vaccine Type Date Status Note Provider Nam e and Address Organization Details Recorded Time Influenza, MDCK, quadrivalent, PF 7 completed ANA MARIA R[place], [place] - [facility] 07/21/2024 10:21:26 Influenza, MDCK, quadrivalent, PF 8 completed Farzana [place] [facility] 07/21/2024 10:21:26 Influenza, MDCK, quadrivalent, PF 6 completed Farzana [place] [facility] 07/21/2024 10:21:26 Influenza, high-dose, quadrivalent, PF 0 completed Farzana [place] [facility] 07/21/2024 10:21:26 Influenza, high-dose, quadrivalent, PF 1 completed Farzana [place] [facility] 07/21/2024 10:21:26 Influenza, high-dose, quadrivalent, PF 3 completed Farzana [place] [facility] 07/21/2024 10:21:26 Influenza, high-dose, quadrivalent, PF 2 completed Farzana [place] [facility] 07/21/2024 10:21:26 COVID-19, mRNA, LNP-S, PF, 100 mcg/0.5mL dose or 50 mcg/0.25mL dose 1 completed Farzana Latham MA null, [place] - [facility] 07/21/2024 10:21:26 COVID-19, mRNA, LNP-S, PF, 100 mcg/0.5mL dose or 50 mcg/0.25mL dose 1 completed Farzana L[place], [place] [facility] 07/21/2024 10:21:26 COVID-19, mRNA, LNP-S, PF, 100 mcg/0.5mL dose or 50 mcg/0.25mL dose 2 completed Farzana L[place], [place] [facility] 07/21/2024 10:21:26 COVID-19, mRNA, LNP-S, PF, 100 mcg/0.5mL dose or 50 mcg/0.25mL dose 1 completed Farzana L[place], [place] [facility] 07/21/2024 10:21:26 COVID-19, mRNA, LNP-S, bivalent, PF, 30 mcg/0.3 mL dose 2 completed Farzana [place] [facility] 07/21/2024 10:21:26 influenza, unspecified formulation 2 completed Farzana [place] [facility] 07/21/2024 10:21:26 influenza, unspecified formulation 4 completed Farzana Latham MA null, [place] - [facility] 07/21/2024 10:21:26 Influenza, split virus, trivalent, preservative 3 completed Farzana L[place], [place] [facility] 07/21/2024 10:21:26 Influenza, split virus, quadrivalent, PF 5 completed Farzana Latham [place] null, [place] [facility] 07/21/2024 10:21:26 Influenza, high-dose, trivalent, PF 4 completed ROBERT Tucker Attn: Accounting,[address] [place], [address], [facility] 08/02/2024 14:52:48 Pneumococcal conjugate PCV20, polysaccharide [id number] conjugate, adjuvant, PF 4 completed ROBERT Tucker Attn: Accounting,[address] [place], [address], [facility] 08/02/2024 14:52:48 Past Encounters Encounter ID Performer Location Encounter Start Date Encounter Closed Date Diagnosis/Indication Diagnosis SNOMED-CT Code Diagnosis ICD10 Code Diagnosis Note [id number] Horacio Prieto MD [facility] [place] [address] [place] [address] 01/21/2024 09:57:03 01/21/2024 12:13:16 Hyperlipidemia 46810229 E78.5 stable on simvastati n 20mg daily. Benign ess ential hypertension 0693019 I10 Refill verapamil ER 240mg daily. Hypothyroidism 29291421 E03.9 stable on levothyrox ine 200mcg daily. due for TFTs Chronic ob structive pulmonary disease 90841206 J44.9 stable on breo inhaler Asthma 165505994 J45.90 9 stable on breo Long-term drug therapy 372064141 Z79.899 bmp, lft and cbc due. Dyspnea on exertion 6084 5006 R06.09 pt reports DIALLO on ROS today. refer for lexiscan stress testing with notable risk factors. Blood gluc ose outside reference range 600252865 R73.09 a1c screening due. Screening for malignant neoplasm of prostate 769861696 Z12.5 PSA due Ex-smoker 5392771 Z87.89 1 pt qualified for LDCT scan lung with medicare plan. Body mass index 30+ - obesity 246541567 Z68.37 bmi 37.5 Obesity 855453008 E66.9 discussed healthy diet, exercise, controllin g carbohydra meredith and added sugars in the diet [id number] Horacio Prieto MD [facility] [place] [address] [place] [address] 07/21/2024 10:10:57 07/21/2024 11:03:37 Hyperlipidemia 68913830 E78.5 stable on simvastati n 20mg daily. Due for updated fasting lipid panel Benign ess ential hypertension 2052074 I10 Blood pressure is 140/70, stable on verapamil ER 240mg daily. Some of his weight gain is contributi ng to a slight increase in the blood pressure noted. Encouragin g weight loss efforts to try to get goal range down to 130/80 or less Hypothyroidism 59978798 E03.9 stable on levothyrox ine 200mcg daily. due for TFTs Ex-smoker 9083746 Z87.89 1 March LDCT chest, we will continue yearly screenings per recommenda tions and guidelines Chronic ob structive pulmonary disease 38226109 J44.9 stable on breo inhaler, no acute complaints Asthma 614545552 J45.90 9 stable on breo no acute complaints Long-term drug therapy 280422196 Z79.899 bmp, lft and cbc due. Blood gluc ose outside reference range 009107767 R73.09 a1c screening due. Body mass index 30+ - obesity 123299989 Z68.37 bmi 37.5 Obesity 549383393 E66.9 discussed healthy diet, exercise, controllin g carbohydra meredith and added sugars in the diet Male hypogonadism 783464 06 E29.1 Patient is on testostero ne injections every 3 weeks and is due for updated free and total testostero ne labs as well as routine PSA Edema of l ower extremity 890024442 R60.0 Slight increase in lower extremity pedal edema. We will start hydrochlor othiazide 25 mg daily which will also help with blood pressure management Administra tion of influenza vaccine 39287486 Z23 Flu shot given today Administra tion of pneumococcal vaccine 78204382 Z23 Prevnar 20 given today [id number] Horacio Prieto MD [facility] [place] [address] [place] [address] 01/20/2025 08:38:46 01/20/2025 09:38:22 Obese class II [id number] 00454 E66.812 discussed healthy diet, exercise, controllin g carbohydra meredith and added sugars in the diet Alkaline p hosphatase above reference range 350749682 R74.8 Alkaline phosphatas e very minimally elevated at 129 but we are going to go ahead and get an updated ultrasound of the liver to evaluate the biliary region Hyperlipidemia 50817016 E78.5 stable on simvastati n 20mg daily. Labs are stable next set will be due in July fasting Benign ess ential hypertension 0334111 I10 Blood pressure is borderline today. Patient does need to work on decreasing his sodium intake as well as working on some weight loss. He is retired now and he has gained some weight and we need to get some physical activity Incorporat ed on a regular basis to take off some of the weight. His blood pressure should respond appropriat bryan because today he is borderline 140/80 on verapamil and losartan. Hypothyroidism 32746505 E03.9 stable on levothyrox ine 175mcg daily. Thyroid function tests are normal refill is given on medication new orders for July labs Ex-smoker 3233439 Z87.89 1 due in march LDCT chest, we will continue yearly screenings per recommenda tions and guidelines Chronic ob structive pulmonary disease 74127970 J44.9 stable on breo inhaler, no acute complaints Asthma 636636364 J45.90 9 stable on breo no acute complaints Long-term drug therapy 272603178 Z79.899 Next set of labs including CBC liver and metabolic panel ordered for July Blood gluc ose outside reference range 131931320 R73.09 a1c screening due. Male hypogonadism 679012 06 E29.1 Patient is on testostero ne injections every 3 weeks and is due for updated free and total testostero ne labs as well as routine PSA Body mass index 30+ - obesity 652438739 Z68.37 bmi 37.5 Obesity 518100746 E66.9 discussed healthy diet, exercise, controllin g carbohydra meredith and added sugars in the diet Edema of rusty ower extremity 649629489 R60.0 Edema continues but again we need to focus on decreasing sodium in the diet and getting some routine exercise. Renewal of prescription 785268539 Z76.0 Syringes refilled Pain in left thumb 54236 88514 730735 M79.645 Refer to the hand specialist for evaluation of ongoing pain in the left thumb Health Concerns Section Related Observation LastModified by Organization Detai ls LastModified Time None Recorded Concern Status LastModified by Organization Details LastModified Time None Recorded Advance Directives Directive Y: Payers Insurance Date Sequence Insurance Name Policy Number Policy Joshi Covered Member ID Joshi Member ID Guarantor Name 02/02/2025 1 [facility] (MEDICARE REPLACEMENT/A DVANTAGE - HMO) [id number] Henry Murphy [id number] Henry Murphy Notes Date Note Type Note Provider Name and Address Organization Details Recorded Time 01/21/20 24 text/htm l Asthma F/UReported bypatient.Notes:stable on breo inhalerCOPDReported bypatient.Notes:stable on breo inhalerHyperlipidemiaReported bypatient.Notes:stable on simvastatin 20mg daily (takes half tab)HypertensionReported bypatient.Notes:stable on losartan 100mg daily and verapamil ER 240mg daily.ThyroidReported bypatient.Notes:stable on levothyroxine 200mcg daily. Male hypogonadism. stable on testosterone injection 1ml (200mg) every 3 weeks. ROBERT Tucker Attn: Accounting, [address] [place], [address], [place] [facility] 02/03/2024 23:07:54 07/21/20 24 text/htm l Asthma F/UReported bypatient.Notes:stable on breo inhalerCOPDReported bypatient.Notes:stable on breo inhalerHyperlipidemiaReported bypatient.Notes:stable on simvastatin 20mg daily (takes half tab)HypertensionReported bypatient.Notes:stable on losartan 100mg daily and verapamil ER 240mg daily.ThyroidReported bypatient.Notes:stable on levothyroxine 200mcg daily. Male hypogonadism. stable on testosterone injection 1ml (200mg) every 3 weeks. ROBERT Tucker Attn: Accounting, [address] [place], [address], [facility] 08/02/2024 14:55:30 01/21/20 25 text/htm l Asthma F/UReported bypatient.Notes:Asthma is stable on Breo Ellipta 100 mcg/25 mcg 1 puff daily.HyperlipidemiaReported bypatient.Duration:chronic Control:usually well controlled Compliance:compliant Risk Factors:hypertensionNotes:Choles terol in good range controlled with simvastatin 40 mg daily and niacinHypertensionReported bypatient.Duration:has noted for years Onset/Timing:better Alleviating Factors:medication Associated Symptoms:shortness of breathNotes:Pressure is controlled with verapamil ER 240 mg 2 tablets daily as well as losartan 100 mg daily and hydrochlorothiazide 25 mg daily.ThyroidReported bypatient.Duration:constant Onset/Timing:still present Context:history of thyroid disease;history of hypothyroidism Modifying Factors:medication Associated Symptoms:no cold intolerance; no heat intolerance; [...] sleep difficulties; no skin changes; no hair changesNotes:Thyroid supplement is 175 mcg of levothyroxine daily. Prediabetes with an A1c of 6% on recent labs. Male hypogonadism is managed with testosterone cypionate 200 mg every 3 weeks. Erectile dysfunction is managed with sildenafil 100 mg tablet dosed as directed on an as-needed basis ROBERT Tucker Attn: Accounting, [address], [place], [address], [facility] 02/01/2025 19:34:25
--- OUTSIDE RECORDS SUMMARY | 2025-03-17 13:25 | XMS_ITS | Clinical Summary ---
Author Organization [facility] Address [address] [place] [address] Care Team Providers Care Transplant Coordinator Name Role Phone Virgilio Madrigal MD Primary Care Provider [phone] Source Comments [facility],non-owned Affiliates and Associated Physician Practices is amultiple site organization consisting of ambulatory clinics and hospital sitesin [place], [place], [place] and [place]. This disclosure is being madepursuant to the Care Everywhere program and may not contain all information available regarding this patient. 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 Social History Tobacco Use Types Packs/Day Years Used Date Smoking Tobacco: Never Smokeless Tobacco: Never Alcohol Use Standard Drinks/Week Comments Yes 0 (1 standard drink = 0.6 oz pur e alcohol) Sex and Gender Information Value Date Recorded Sex Assigned at Not on file Legal Sex Male 6:37 PM [employer] [address] Gender Identity Not on file Sexual Orientation Not on file Last Filed Vital Signs Vital Sign Reading Time Taken Comments Blood Pressure 180/85 10/20/2013 2:16 PM [employer] [address] Pulse 59 10/20/2013 2:16 PM [employer] [address] Temperature 36.7 C (98.1 F) 10/20/2013 2:16 PM [employer] [address] Respiratory Rate 18 10/20/2013 2:16 PM [employer] [address] Oxygen Saturation - - Inhaled Oxygen Concentration - - Weight 98.9 kg (218 lb) 10/20/2013 2:16 PM [employer] [address] Height 175.3 cm (5' 9) 10/20/2013 2:16 PM [employer] [address] Body Mass Index 32.19 10/20/2013 2:16 PM [address] [address] Plan of Treatment Health Maintenance Due Date [...] season) 2024 DEPRESSION SCREENING 09/03/2024 INFLUENZA VACCINE (#1) 2025 Respiratory Syncytial Virus (RSV) Vaccine Pt: [...] age to complete this topic Care Teams Transplant Coordinator Relationship Specialty Start Date End Date Virgilio Madrigal MD [address] [place] [address] PCP - General 07/07/08
== END 2025-03-17 13:19 | disposition home or self-care (01) ==
PROVIDERS: PCP Physician Assistant; Visit Provider Physician Assistant
DX: Z12.2 Encounter for screening for malignant neoplasm of respiratory organs (principal); Z87.891 Personal history of nicotine dependence
CPT/HCPCS: 71271

== ENCOUNTER 2025-03-23 08:45 | Outpatient (RCR) | payer MEDICARE, SELFPAY ==
--- NOTE | 2025-02-16 16:38 | OPREHPOC ---
Outpatient Therapy Plan of Care This is a Multidisciplinary Plan of Care that may contain components documented by all disciplines (PT, OT, and ST.) OT Problem 1 OT Problem #1 Knowledge Deficit OT Goal 1 Goal / Goal Update Pt. will demonstrate independence in HEP Pt. will return demonstration of wear schedule of custom hand splint Target Visit 5 OT Problem 2 OT Problem #2 Pain OT Goal 1 Goal / Goal Update Pt. will report decreased pain with functional use of L hand to <1/10 on pain scale 5/7 days per week Target Visit 5 OT Problem 3 OT Problem #3 Impaired Strength OT Goal 1 Goal / Goal Update Pt. will demonstrate increased pinch strength in L hand by 2 lbs without increased pain Target Visit 5 OT Problem 4 OT Problem #4 Impaired Range of Motion OT Goal 1 Goal / Goal Update Pt. will increased ROM, as demonstrated by thumb to 5th finger opposition without increased pain
--- NOTE | 2025-02-16 16:39 | OTOPEVAL1 ---
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 reports about 3 months ago onset of pain and swelling in L thumb. Pt. reports continued pain results in difficulty with yardwork, specifically holding weed eater, lifting trash bags, using a sledge hammer, opening jars, buttoning button, likely difficulty fishing and cranking garrett. Pt. reports he will often compensate with use of dominate R hand or use another tool for leverage. History of bilateral carpal tunnel release surgeries Reported Pain Level Pain Score 3: Self Report Assessment OT Clinical Summary Pt. is 70 year old M, referred for unilateral primary osteoarthritis of first carpometacarpal joint. Pt. presents increased pain in joint with limitations in ROM and strength when using for drafter chief design/pinch/and oppositional movement, resulting in decreased functional use of L hand . Pt. will benefit from skilled OT services including instruction of therapeutic exercises and activities, creation and issuing of custom hand splint, and use of therapeutic modalities to reduce and manage pain, and increase overall functional use. Plan of Care Interventions Therapeutic Exercise,Manual Therapy,Therapeutic Activities,Hot Pack/Cold Pack,Ultrasound,Paraffin Other Interventions custom hand splint OT Services Indicated Yes Treatment Frequency and 1 x week / 5 weeks Duration These treatments will address the objective and functional deficits as defined above. The patient will be advanced safely and appropriately in order for the patient to progress towards his/her prior level of function. Additional exercises will be introduced and as well as a comprehensive home exercise program upon discharge, if needed, ?to ensure carryover of functional gains achieved in the clinic. This treatment plan has been reviewed and agreement upon by the patient.
--- NOTE | 2025-03-23 09:38 | OTOPDC ---
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 reports his left thumb feels more flexible and less painful. He reports at rest his pain has reduced to 0/10 (initially 3/10) and at worst his pain gets up to is 2/10 (initially 8/10). He reports less pain with lifting trash bags and buttoning buttons. He reports he is compensating less. A month ago he was favoring the right hand and now he is able to use his left hand for more ADLs. Reported Pain Level Pain Score 0: Self Report Additional Pain Score Comments 2/10 at worst with ADLs. Assessment OT Clinical Summary Patient referred to OT with dx of unilateral primary osteoarthritis of first CMC joint. Patient has progressed with improved functional flexibility and reduced pain of the left thumb. Reviewed joint protection techniques, orthotic wear, and HEP. He demonstrates good understanding of all materials and is ready for discharge. D/C OT at this time. Thank you for this referral. Plan of Care OT Services Indicated No
--- NOTE | 2025-03-23 09:39 | OPREHPOC ---
Outpatient Therapy Plan of Care This is a Multidisciplinary Plan of Care that may contain components documented by all disciplines (PT, OT, and ST.) OT Problem 1 OT Problem #1 Knowledge Deficit OT Goal 1 Goal / Goal Update Pt. will demonstrate independence in HEP Pt. will return demonstration of wear schedule of custom hand splint ---OT D/C 03/23/25--- Met Met Target Visit 5 OT Problem 2 OT Problem #2 Pain OT Goal 1 Goal / Goal Update Pt. will report decreased pain with functional use of L hand to <1/10 on pain scale 5/7 days per week ---OT D/C 03/23/25--- Inconsistently met Target Visit 5 OT Problem 3 OT Problem #3 Impaired Strength OT Goal 1 Goal / Goal Update Pt. will demonstrate increased pinch strength in L hand by 2 lbs without increased pain ---OT D/C 03/23/25--- Met Target Visit 5 OT Problem 4 OT Problem #4 Impaired Range of Motion OT Goal 1 Goal / Goal Update Pt. will increased ROM, as demonstrated by thumb to 5th finger opposition without increased pain ---OT D/C 03/23/25--- Met
== END 2025-03-23 10:09 | disposition home or self-care (01) ==
LOC: ANHOT 08:45
PROVIDERS: PCP Physician Assistant; Visit Provider Plastic Surgery
DX: M18.12 Unilateral primary osteoarthritis of first carpometacarpal joint, left hand (principal)
CPT/HCPCS: 97018; 97110; 97140; 97165; L3913